=== PATIENT | female | born 1950 | race African-American/Black ===

== ENCOUNTER 2019-08-18 20:11 | Inpatient (IN) | payer OTHER, BC ==
[~2019-08-18] VITALS: Ht 170.2 cm; Wt 83.0 kg
[~2019-08-18 20:11] MED LIST: AMITIZA8 MCG PO; AMITRIPTYLINE H25 M2 PO; BUTALB-APAP-CA1 EACH PO; DEXILANT60 MG PO; LYRICA 50 MG50 MG PO; PREMARIN0.45 MG PO; ZOLOFT50 MG PO
[2019-08-18 20:12] VITALS: BP 98/70
[2019-08-18 21:31] LABS: ANION GAP 10 mmol/L (7-16); BUN 10 mg/dL (7-18); CHLORIDE 99 mmol/L (98-107); CO2 25 mmol/L (21-32); CREATININE 0.8 mg/dL (0.6-1.0); GLUCOSE 92 mg/dL (74-106); POTASSIUM 3.9 mmol/L (3.5-5.1); SODIUM 134 mmol/L (136-145)
[2019-08-18 21:36] LABS: ALBUMIN 3.1 g/dL (3.4-5.0); DIRECT BILIRUBIN < 0.1 mg/dL (<0.1-0.2); SGOT 71 U/L (15-37); SGPT 30 U/L (30-65); TOTAL BILIRUBIN 0.3 mg/dL (<0.1-1.0); TOTAL PROTEIN 7.7 g/dL (6.4-8.2)
[2019-08-18 21:40] LABS: ABSOLUTE NEUTROPHILS 2.5 thou/uL (1.4-8.2); BASOPHILS 0.2 % (0.0-2.0); HEMATOCRIT 28.2 % (37.0-47.0); HEMOGLOBIN 9.5 gm/dL (12.0-15.0); LYMPHOCYTES 18.2 % (24.0-44.0); MCH 30.4 pg (26.0-34.0); MCHC 33.8 g/dL (28.0-37.0); MCV 90.2 fL (80.0-100.0); MONOCYTES 5.6 % (1.0-8.0); PLATELET COUNT 124 thou/uL (150-400); RBC 3.12 mil/uL (4.20-5.00); RDW 12.7 % (10.5-14.5); WBC 3.3 thou/uL (4.0-11.0)
[2019-08-18 22:39] VITALS: BP 110/74
--- NOTE | 2019-08-18 22:44 | NUR ---
ED NURSE CALLED TO GIVE REPORT TO INPATIENT NURSE, WAS TOLD NURSE IS TRANSPORTING SOMEONE TO ICU AND WILL CALL WHEN SHE RETURNS
[2019-08-19 00:50] VITALS: BP 105/74
--- NOTE | 2019-08-19 01:36 | NUR ---
ADMIT FROM HOME. WAS AT HOME WITH SOA WEAKNESS AND DIARRHEA, HOTLINE REFERRED HER TO HER PCP. PCP ORDERED [facility] PT REPORTED STILL FEELING WEAK SOA COUGH, DIARRHEA SO SHE CAME TO THE ED. O2 PER NC 2L. PT REPORTED ED TOLD HER SHE HAS BILATERAL PNEUMONIA. PT LIVES AT HOME WITH HER WHO IS CURRENTLY WORKING AND SAYS HE HAS BEEN SLEEPING ON THE COUCH. LUNGS WITH WHEEZES, CRACKLES IN THE BASES, RR 32 WITH EXERTION, 20 AT REST. STEADY GAIT AND BALANCE WITH TRANSFER TO BSC. PT HAVING LIQUID BROWN STOOL. NEED UA SAMPLE TALKED WITH PT RE STRAIGHT CATH IF UNABLE TO OBTAIN WITH BSC. PT DECLINED FEMALE EXT CATH AT THIS TIME. TEMP DOWN TO 99 AFTER ED TYLENOL. IVF INTACT. NEW IV RAC. PT REQUESTED BLANKET AND SPRITE AND PROVIDED, BED ALARM ON. PT PLEASANT THANKING ALL STAFF FOR BEING HERE TO CARE FOR HER, STATED WHEN SHE WAS AT HOME NO ONE WANTED TO COME HELP. FLAT AFFECT, [facility] CONTACT.
[2019-08-19 04:20] VITALS: BP 101/67
--- NOTE | 2019-08-19 04:34 | NUR ---
PT DID NOT URINATE, STRAIGHT CATH FOR SAMPLE MICHELLE COLOR 400+. UA OBTAINED. PT NOW 02 SAT 94% RA. RR 20 WITH MOVEMENT AND TALKING.
[2019-08-19 04:47] LABS: HEMATOCRIT 36.6 % (37.0-47.0); MCH 30.2 pg (26.0-34.0); MCHC 33.4 g/dL (28.0-37.0); MCV 90.4 fL (80.0-100.0); RBC 4.05 mil/uL (4.20-5.00); RDW 12.8 % (10.5-14.5)
[2019-08-19 04:56] LABS: CALCIUM 7.9 mg/dL (8.5-10.1); CREATININE 0.8 mg/dL (0.6-1.0); POTASSIUM 3.7 mmol/L (3.5-5.1)
[2019-08-19 05:00] LABS: HEMOGLOBIN 12.2 gm/dL (12.0-15.0)
[2019-08-19 05:17] LABS: URINE BILIRUBIN NEGATIVE (Negative); URINE BLOOD NEGATIVE (Negative); URINE CLARITY CLEAR; URINE COLOR YELLOW; URINE GLUCOSE-RANDOM* NEGATIVE (Negative); URINE KETONES 2+ (Negative); URINE LEUKOCYTES-REFLEX NEGATIVE (Negative); URINE NITRITE-REFLEX NEGATIVE (Negative); URINE PROTEIN (DIPSTICK) 1+ (Negative); URINE SPECIFIC GRAVITY 1.025 (1.005-1.035); URINE UROBILINOGEN 0.2 E.U./dl (0.2-1.0)
[2019-08-19 06:15] LABS: BACTERIA-REFLEX 1-9 Few /HPF (None Seen); CASTS None Seen /LPF (None Seen); CRYSTALS None Seen /LPF (None Seen); MUCUS >6 Heavy strn/LPF (None Seen); SQUAMOUS 0-3 Few /LPF (0-3); URINE RBC 0-2 Rare /HPF (0-2); URINE WBC-REFLEX 0-5 Rare /HPF (0-5)
--- NOTE | 2019-08-19 06:33 | NUR ---
PTS CALLED FOR UPDATE AND PROVIDED PER PTS REQUEST.
[2019-08-19 07:46] VITALS: BP 113/74
[2019-08-19] MEDS ORDERED: SOMA250 MG PO (07:56)
[2019-08-19] MEDS ORDERED: SUMATRIPTAN SU100 MG PO (07:58)
--- NOTE | 2019-08-19 12:51 | NUR ---
1000- pt's sister called and wanted patient condition and information, sister is Sujatha Martell. Sister does not have pt access code. Sister was upset that RN was unable to give pt information per HIPPA. Sister then requested to talk to pt advocate. Pt advocate notified and personally spoke with pt's sister. At this time only Pt's has pt access code. 1250- Pt's Fabio Del Rosario called and stated he is not giving out the pt's access privacy code at this time and that if any family calls that does not have the access code, they can call him for updates.
[2019-08-19 14:58] VITALS: BP 142/86
--- NOTE | 2019-08-19 18:36 | NUR ---
PT HAD DIARRHEA X4 TODAY. GREEN LIQUID. PT HAS VERY POOR APPETITE. DR NOTIFIED OF PT HAVING DIARRHEA AND NEW ORDER FOR LOPERMIDE GIVEN. PT GIVEN MEDICATION X2 DOSES THIS SHIFT. PT C/O MIGRAINE TODAY AND HOME MIGRAINE MEDICATION RESTARTED. PT TOOK ONE DOSE BUT REFUSED 2ND DOSE STATING MIGRAINE IS GONE. PT C/O OF CHRONIC BACK PAIN WELL NON CARDIAC CHEST PAIN. PAIN MEDS GIVEN AND PT STATES PARTIAL RELIEF. PT IS ON 2L NC AND DOES NOT APPEAR TO BE IN ANY RESPIRATORY DISTRESS WITH O2 SAT >96% ENTIRE SHIFT.
[2019-08-19 19:22] VITALS: BP 127/81
--- NOTE | 2019-08-19 20:07 | NUR ---
PT RESTING IN BED LIGHTS OFF. O2 PER NC 2L. PT NOT LABORED WITH BREATHING, NO GROANING WHILE NURSE TALKING WTIH PT. SAD AFFECT, [facility] CONTACT. IVF INTACT. PT CALLS FOR ASSISTANCE WITH TRANSFER TO BS. ALARM ON. PT DECLINED HS SNACK, THANK NURSE FOR WATER. PT REQUESTING PRN FOR DIARRHEA AND PAIN WHEN THEY ARE BOTH DUE. PT REPORTS HX OF MIGRAINES. PT STATED SHE TALKED TO HER X1 TODAY. LUNGS WITH WHEEZES IN BASES. REMAINS IN ISOLATION.
[2019-08-20 03:41] VITALS: BP 104/71
--- NOTE | 2019-08-20 04:33 | NUR ---
PT AWAKENED THIS AM WITH REPETITIVE GROANING BEHAVIORS THAT SHE HAS EXHIBITED PREVIOUSLY. PT C/O HEADACHE AND NAUSEA AND PRNS PROVIED. PT IS SPEAKING SOFTLY VERSUS PREVIOUS EASILY HEARD VOICE.
--- NOTE | 2019-08-20 04:57 | NUR ---
PT DECLINED FLU SHOT STATED SHE DOES NOT WANT IT UNTIL SHE IS FEELING BETTER.
[2019-08-20 05:29] LABS: BASOPHILS 0.3 % (0.0-2.0); HEMATOCRIT 37.2 % (37.0-47.0); HEMOGLOBIN 12.4 gm/dL (12.0-15.0); LYMPHOCYTES 19.2 % (24.0-44.0); MCH 30.2 pg (26.0-34.0); MCHC 33.2 g/dL (28.0-37.0); MCV 90.9 fL (80.0-100.0); MONOCYTES 5.6 % (1.0-8.0); PLATELET COUNT 220 thou/uL (150-400); POLYS 74.9 % (36.0-66.0); RBC 4.09 mil/uL (4.20-5.00); RDW 12.8 % (10.5-14.5); WBC 5.4 thou/uL (4.0-11.0)
[2019-08-20 08:00] VITALS: BP 113/73
--- NOTE | 2019-08-20 14:11 | NUR ---
ASSESSMENT: CM REVIEWED CHART AND SPOKE WITH PATIENT VIA PHONE. PT WAS ADMITTED WITH SEPSIS/PNA/DIARRHEA AND PT IS CURRENTLY BEING TESTED FOR COVID 19 AND RESULTS ARE PENDING. PT REPORTS SHE LIVES IN AN APT WITH HER . PT IS NORMALLY VERY INDEPENDENT AND DOES NOT HAVE ANY DME. PT REPORTS SHE IS INDEPENDENT WITH ADLS. PT HAS NOT HAD HH IN THE PAST NOR BEEN TO A SNF. PT STATES SHE DOES NOT HAVE OXYGEN AT HOME. PT IS CURRENTLY ON 1L OXYGEN AND WILL CONTINUE TO MONITOR. PT REPORTS FEELING WEAK. PT/OT UNABLE TO SEE PATIENT UNTIL COVID TESTING COMES BACK NEGATIVE (AWAITING RESULTS AT THIS TIME). CM DISCUSSED POSSIBLE NEED FOR HH AND PT WANTED REFERRAL SENT TO [facility]. CM FAXED REFERRAL. IF COVID TESTING COMES BACK NEGATIVE AND PT IS ABLE TO GO HOME WITH HH CONTACT [facility] AT:[phone]. IF PATIENT IS ABLE TO DISCHARGE WITH HH FAX DISCHARGE ORDERS TO [phone].
--- NOTE | 2019-08-20 18:13 | NUR ---
PATIENT CONT TO REST IN ROOM AT THIS TIME. RESPIRATIONS ARE EVEN NON LABORED. SHE DOES APPEAR TO BE ANXIOUS. EASILY REDIRECTED. SHE DID COMPLAIN OF MIGRAINE EARLIER AND PRN MED ADMININSTERED AND IT WAS EFFECTIVE. SHE IS HAS NOT EATING ANY FOOD ALL DAY. DRINKS VERY MINIMAL AMOUNTS. WILL CONT TO ENCOURAGE.
[2019-08-20 19:30] VITALS: BP 115/78
[2019-08-20 23:01] VITALS: BP 128/75
[2019-08-21] VITALS (24 sets, daily range): BP systolic 101–146; BP diastolic 59–79
--- NOTE | 2019-08-21 03:17 | NUR ---
Patient making slow progress towards outcome goals. Vital and rhythm stable. IVFLuids infusing. Weak, slow, requires assistance up to bathroom. Appetite poor, drinking fluids. Requires 3L oxygen for sats above 91%. Difficulty controlling Migraine headache, Morphine afforded best migraine relief per patient.
--- NOTE | 2019-08-21 12:31 | NUR ---
ASSUMED PATIENT CARE AT 0700. A/O X3. DEPRESSED. POOR APPETITE. HAS TEMP 38.4 IN AM. INCREASED 02 TO 4L/NC. 2-3+ EDEMA. COVID 19 TEST POSITIVE. FAMILY NOTIFIED. WILL TRANSFER PATIENT TO [facility] SOON.
--- NOTE | 2019-08-21 13:32 | NUR ---
PT ORIENTED TO ROOM AND UNIT, BED LOW AND LOCKED, SIDE RAILS UP X3, CALL LIGHT IN REACH. TELE AP[PLIED AND PT IN ISOLATION FOR COVID-19. WILL CONTINUE TO ASSESS.
--- NOTE | 2019-08-21 18:01 | NUR ---
PT RESTED IN BED THIS THE REMAINDER FO SHIFT AND IS NOW DOWN TO 3L NC. PT PROGRESSING TOWARDS GOALS.
[2019-08-22] VITALS (44 sets, daily range): BP systolic 120–160; BP diastolic 66–110
--- NOTE | 2019-08-22 05:56 | NUR ---
ASSUME CARE 1900. PT STABLE. BP RUNS MIGH IN 150s SYSTOLIC AND PATIENT IS SOMETIMES TACHYPNEIC. COMPLAINS OF INTERMITTENT HEADCHS AND INDICATES A HX OF MIGRAINES. TAKES IMITREX AT HOME FOR MIGRAINES. ONETIME DOSE GIVEN DURING SHIFT AND HEADCHE SEEMS TO SUBSIDE A LITTE TO A 5/10. ON ROOM AIR SATS MID 90s. SR NOTED ON MONITOR WITH HR IN 70s TO 90s. COUGHING UP THICK, CLEAR STRINGY, SPUTUM. ASSESSMENT ASA CHARTED. PROGRESSING WELL WITH POC. PATIENT IS EXTREMELY WEEK AND WOULD BENEFIT FROM PT/OT. PLAN IS TO CONTINUE TO MANAGE RESPIRATORY FUNCTION. WILL CONTINUE TO MONITOR AND FOLLWOW WITH POC.
[2019-08-22 06:41] LABS: HEMATOCRIT 36.7 % (37.0-47.0); HEMOGLOBIN 12.3 gm/dL (12.0-15.0); MCH 30.4 pg (26.0-34.0); MCHC 33.6 g/dL (28.0-37.0); MCV 90.5 fL (80.0-100.0); RBC 4.05 mil/uL (4.20-5.00); RDW 13.1 % (10.5-14.5); WBC 8.9 thou/uL (4.0-11.0)
[2019-08-22 08:10] LABS: ANISOCYTOSIS SLIGHT; PLATELET COUNT 244 thou/uL (150-400)
--- NOTE | 2019-08-22 19:48 | NUR ---
ASSUMED CARE OF PT AT 0700, PT CONT TO NEED INCREASED OXYGEN NOTED TO BEDESATTING AT TIMES. DR ESCOBAR NOTIFIED. PT NEEDING 10L OXYGEN AT THISTIME. PT FEBRILE ASWELL AND TYLENOL ADMINISTERED. PT RESTING WITH EYESCLOSEDAT THISTIME.
--- NOTE | 2019-08-22 23:02 | NUR ---
@AT 1935HRS FAMILY CALLED BARRY, HIS BROTHER AND THEIR DAD ON A [address] LINE TO CHECK ON THE PT. PT PASSWORD CODE VERIFIED. FAMILY UPDATED ON THE PT AND INFORMED ON THE INCREASED WORK OF BREATHING ON THE PT. FAMILY WANTED TO KNOW THE PT TEMP AND BP. WHILE SPEAKING WITH THE FAMILY RT STAFF CAME AND SAID HE TALKED THE PULM PHYSICIAN, AND HE WAS COMING TO HAVE PT INTUBATED. FAMILY INFORMED AT THAT TIME ABOUT PENDING INTUBATION PROCEDURE. FAMILY CALLED BACK TO CHECK ON THE PT AGAIN ABOUT 2030HRS INFORMED STILL WAITING ON THE DR FOR INTUBATION , PT AT THE TIME SITTING IN BED WITH INCREASED WORK OF BREATHING. FAMILY STATED THEY WILL CALL BACK LATER AFTER THE PROCEDURE.
[2019-08-22 23:04] LABS: BE(vivo) -8.2 mmol/L (-2 to +3); HCO3 15.8 mmol/L (22.0-26.0); PCO2 28.2 mmHg (35.0-45.0); pH 7.366 (7.360-7.450); sO2 99.5 % (92.0-98.0)
--- NOTE | 2019-08-22 23:08 | NUR ---
@2300HRS FAMILY CALLED BARRY, HIS BROTHER AND THEIR DAD ON THREE WAY LINE. PT PASSWORD CODE VERIFIED. PT INFORMED THE INTIUBATION PROCEDURE WAS COMPLETED AND PT RESTING COMFORTABLY AT THIS TIME. ALSO INFORMED PT NOW HAS A MEDINA CATHETER AND NG TUBE WAS INSERTED AT AND XRAY IN THE ROOM FOR NG TUBE VERIFICATION. FAMILY EXPRESSED APPRECIATION FOR THE CARE STATED WILL CALL IN THE AM TO CHECK ON THE PT.
[2019-08-23] VITALS (75 sets, daily range): BP systolic 80–142; BP diastolic 55–94
--- NOTE | 2019-08-23 | NUR ---
ASSUMED CARE OF PT. INTUBATED AT 0. SEDATED.
[2019-08-23 05:30] LABS: HCO3 17.7 mmol/L (22.0-26.0); PCO2 26.2 mmHg (35.0-45.0); PO2 103.3 mmHg (80.0-100.0); pH 7.447 (7.360-7.450)
[2019-08-23 05:38] LABS: HEMATOCRIT 31.3 % (37.0-47.0); HEMOGLOBIN 10.7 gm/dL (12.0-15.0); MCH 30.4 pg (26.0-34.0); MCHC 34.2 g/dL (28.0-37.0); MCV 88.7 fL (80.0-100.0); RBC 3.53 mil/uL (4.20-5.00); WBC 12.7 thou/uL (4.0-11.0)
[2019-08-23 05:50] LABS: CALCIUM 7.9 mg/dL (8.5-10.1); CREATININE 0.6 mg/dL (0.6-1.0)
[2019-08-23 05:53] LABS: POTASSIUM 2.9 mmol/L (3.5-5.1)
--- NOTE | 2019-08-23 06:00 | NUR ---
REMAINS INTUBATED AND SEDATED WITH PROPOFOL AND VERSED GTTS. ISOLATION FOR COBID 19 VIRUS. HAD A LARGE SOFT FELICIANO BROWN STOOL EARLIER. SINUS RHYTHM 600 CC UO THIS SHIFT. WILL CONT TO MONITOR.
--- NOTE | 2019-08-23 12:46 | NUR ---
VAT CONSULED FOR A CL FOR THIS COVID PT. DR ESCOBAR WANTED LINE URGENTLY AND IT IS MED NECESSITY. A [id number] PLACED LT EJ AND TIP AT THE CAJ PER CXR. PLEASE SEE INSERTION NOTE FOR DETAILS
--- NOTE | 2019-08-23 12:52 | NUR ---
discussed during los, pt remains on vent, + covid 19. she lives with her spouse in an apartment. will cont following as needed for dc needs.
--- NOTE | 2019-08-23 15:43 | NUR ---
Nutrition: Noted plans for tube feeds. REC Vital HP to reach goal 60 mL/hr.
--- NOTE | 2019-08-23 16:59 | NUR ---
PT INTUBATED AND SEDATED, ASSESSMENTS DOCUMENTED. PT ON LEVOPHED/PROPOFOL/VERSED GTT FOR VENT AND SEDATION MANAGEMENT. LEFT TRIPLE LUMEN IJ PLACED AT BEDSIDE BY VASC ACCESS TEAM. POTASSIUM CRITICAL AT 2.7 @1650, WILL FOLLOW ELECTROLYTE PROTOCAL. ADEQUATE URINE OUTPUT THROUGH SHIFT. NO BM FOR DAY SHIFT. PT NOT PROGRESSING TOWARDS PLAN OF CARE. PATIENT AND FAMILY HAVE BEEN UPDATED AND EDUCATED. WILL CONTINUE TO MONITOR.
[2019-08-24] VITALS (85 sets, daily range): BP systolic 81–139; BP diastolic 55–88
[2019-08-24 05:25] LABS: HEMATOCRIT 31.8 % (37.0-47.0); HEMOGLOBIN 10.6 gm/dL (12.0-15.0); MCH 29.9 pg (26.0-34.0); MCHC 33.3 g/dL (28.0-37.0); MCV 89.8 fL (80.0-100.0); PLATELET COUNT 280 thou/uL (150-400); RBC 3.54 mil/uL (4.20-5.00); WBC 14.5 thou/uL (4.0-11.0)
[2019-08-24 05:29] LABS: BE(vivo) -0.8 mmol/L (-2 to +3); HCO3 21.1 mmol/L (22.0-26.0); PCO2 27.2 mmHg (35.0-45.0); PO2 74.5 mmHg (80.0-100.0); pH 7.507 (7.360-7.450); sO2 96.3 % (92.0-98.0)
[2019-08-24 05:35] LABS: ALBUMIN 1.6 g/dL (3.4-5.0); CALCIUM 7.9 mg/dL (8.5-10.1); CREATININE 0.7 mg/dL (0.6-1.0); TOTAL BILIRUBIN 0.8 mg/dL (<0.1-1.0); TOTAL PROTEIN 5.7 g/dL (6.4-8.2)
[2019-08-24 05:37] LABS: POTASSIUM 2.8 mmol/L (3.5-5.1)
[2019-08-24 06:05] LABS: ABSOLUTE NEUTROPHILS 13.8 thou/uL (1.4-8.2); ANISOCYTOSIS 1+; NUCLEATED RBCS 2 /100WBC; PLATELET ESTIMATE NORMAL; POIKILOCYTOSIS 1+
--- NOTE | 2019-08-24 15:41 | NUR ---
ASSUMED CARE AT 0700, ASSESSMENT AND VITAL SIGNS COMPLETED PER ICU PROTOCOL. DR. MUSA ROUNDED THIS AM, NO NEW ORDERS RECEIVED. DR. AUSTIN ROUNEDED THIS AM, NEW ORDERS RECEIVED AND EXECUTED.
[2019-08-25] VITALS (89 sets, daily range): BP systolic 81–129; BP diastolic 58–88
--- NOTE | 2019-08-25 04:52 | NUR ---
NO CHANGES OVERNIGHT. PT REMAINS ON VENT WITH NO CHANGE IN SETTINGS. ON VERSED AND PROPOFOL GTTS FOR SEDATION/VENT MANAGMENT. ON LEVO GTT AT LOW RATE FOR BP SUPPORT. PT WAS GRADUALLY BECOMING MORE TACHYPNEIC EARLIER, BUT SEDATION WAS INCREASED, PT'S BREATHING SLOWED DOWN AND PT APPEARED MORE CALM. PT WAS GRIMACING WHEN TACHYPNEIC. PT IS STABLE, BUT IS NOT PROGRESSING AT THIS TIME. WILL CONTINUE TO MONITOR.
[2019-08-25 05:33] LABS: BE(vivo) 0.9 mmol/L (-2 to +3); HCO3 23.2 mmol/L (22.0-26.0); PCO2 29.3 mmHg (35.0-45.0); PO2 102.2 mmHg (80.0-100.0); pH 7.516 (7.360-7.450); sO2 98.2 % (92.0-98.0)
[2019-08-25 06:59] LABS: HEMATOCRIT 29.4 % (37.0-47.0); HEMOGLOBIN 9.9 gm/dL (12.0-15.0); MCH 29.9 pg (26.0-34.0); MCHC 33.5 g/dL (28.0-37.0); MCV 89.2 fL (80.0-100.0); PLATELET COUNT 345 thou/uL (150-400); RDW 12.9 % (10.5-14.5); WBC 13.6 thou/uL (4.0-11.0)
[2019-08-25 07:23] LABS: ALBUMIN 1.5 g/dL (3.4-5.0); CALCIUM 8.5 mg/dL (8.5-10.1); CREATININE 0.6 mg/dL (0.6-1.0); POTASSIUM 3.8 mmol/L (3.5-5.1); TOTAL BILIRUBIN 0.4 mg/dL (<0.1-1.0); TOTAL PROTEIN 5.8 g/dL (6.4-8.2)
[2019-08-25 09:01] LABS: ABSOLUTE NEUTROPHILS 11.4 thou/uL (1.4-8.2); PLATELET ESTIMATE NORMAL
--- NOTE | 2019-08-25 18:42 | NUR ---
ASSESSMENTS AND INTERVENTIONS DOCCUMENTED. NO MAJOR CHANGES THROUGH OUT SHIFT. FAMILY UPDATED ABOUT POC. FAMILY EXPRESSING UNDERSTANDING. PATIENT REMAINS STABLE ON THE VENT. PROPFOL AND VERSED GTT. LEVOPHED GTT TITRATED OFF. PATIENT BP WNL. PATIENT PROGRESSING TOWARDS GOALS EVIDENCE BY BEING TITRATED OFF THE LEVOPHED GTT.
[2019-08-26] VITALS (31 sets, daily range): BP systolic 92–114; BP diastolic 64–81
[2019-08-26 05:30] LABS: CALCIUM 8.6 mg/dL (8.5-10.1); CREATININE 0.6 mg/dL (0.6-1.0); HEMATOCRIT 27.6 % (37.0-47.0); HEMOGLOBIN 9.2 gm/dL (12.0-15.0); MCHC 33.4 g/dL (28.0-37.0); MCV 89.8 fL (80.0-100.0); POTASSIUM 3.5 mmol/L (3.5-5.1); RBC 3.08 mil/uL (4.20-5.00); WBC 11.8 thou/uL (4.0-11.0)
--- NOTE | 2019-08-26 06:16 | NUR ---
No event tonight. Pt remains stable in this shift. Remain off Levophed gtt. MAP has been reading >65 mmHg. Start TF last night, so far she is suzan very well. No other changes from last assessment.
[2019-08-26 08:49] LABS: BE(vivo) 3.9 mmol/L (-2 to +3); HCO3 27.3 mmol/L (22.0-26.0); PCO2 36.5 mmHg (35.0-45.0); PO2 84.2 mmHg (80.0-100.0); pH 7.492 (7.360-7.450); sO2 97.1 % (92.0-98.0)
--- NOTE | 2019-08-26 16:22 | NUR ---
PATIENT ASSESSMENT AND VITAL SIGNS DOCUMENTED. LASIX GIVEN WITH RESULTANT OF URINE OUTPUT >30ML/HR. PATIENT HAD A BOWEL MOVEMET TODAY. INTEGRITY OF VENTILATOR TUBING INTACT. PATIENT OXYGENTATION REMAINS >92%. PATIENT SEPSIS SCREENING WAS POSITIVE, THIS WAS RELAYED TO PHYSICIAN, AWAITING RESPONSE. NURSE UPDATED PHYSICIANS THEY ROUNDED. LUNG SOUNDS ARE CLEAR. RT PROVIDING SUCTION WHEN NEEDED. NO EXTRA SUCTION REQUIRED TODAY. LOW GRADE TEMPERATURE NOTED. PATIENT MAINTAINED TOWARDS PLAN OF CARE OF OXYGENATION, STABILITY OF VITAL SINGS, SAFETY OF VENTILATOR AND THE ENDOTRACHEAL TUBE. PLAN IS TO CONTINUE TO MONITOR PATIENT STATUS, CHEST XRAY IN THE MORNING. FAMILY UPDATED THIS MORNING ON PATIENT STATUS AND CRITICAL NATURE OF CONDITION. THEIR QUESTIONS WERE ANSWERED. THEY APPEARED GRATEFUL FOR THE CARE THE STAFF IS PROVIDING.
--- NOTE | 2019-08-26 16:27 | NUR ---
PHYSICIAN RESPONDED IN REGARDS TO SEPSIS SCREENING POSITIVE. NO NEW ORDERS AT THIS TIME.
[2019-08-26 18:07] LABS: ADENOVIRUS Negative (Negative); INFLUENZA A Negative (Negative); INFLUENZA B Negative (Negative); METAPNEUMOVIRUS Negative (Negative); PARAINFLUENZA 1 Negative (Negative); PARAINFLUENZA 2 Negative (Negative); PARAINFLUENZA 3 Negative (Negative); RHINOVIRUS Negative (Negative); RSV A Negative (Negative); RSV B Negative (Negative)
[2019-08-27] VITALS (24 sets, daily range): BP systolic 99–127; BP diastolic 64–87
--- NOTE | 2019-08-27 05:45 | NUR ---
Pt remains sedated, intubated and restrained, she is reactive to cares, +gag/cough noted. At approx 0400, her temp and heart rate normalized, she is currently SR 89, temp 36.9. Lung sounds are diminished, minimal ETT/oral secretions, sats 95% and above. Her tube feeding is at 50 ml's/hr via OGT, flushes freely, minimal residuals, with active bowel sounds. Rayo catheter is patent draining clear yellow urine, she receives IV lasix, with good effect. The bed is in the low/locked position, the siderails are up x 4, and she was monitored closely through the night. She is slowly progressing towards her POC goals.
[2019-08-27 09:12] LABS: BE(vivo) 5.2 mmol/L (-2 to +3); HCO3 29.1 mmol/L (22.0-26.0); PCO2 39.9 mmHg (35.0-45.0); PO2 81.6 mmHg (80.0-100.0); pH 7.481 (7.360-7.450); sO2 96.7 % (92.0-98.0)
--- NOTE | 2019-08-27 09:34 | NUR ---
pt remains intubated, has tub feeding, for nutrition. possible will start weaning trails. no anticipated dc over the weekend. will cont following as needed for dc needs. remains in isolation precaution for covid 19 positive.
--- NOTE | 2019-08-27 18:47 | NUR ---
FI02 DOWN TO 30% THIS SHIFT. OPENS EYES AND TRACKS BUT DOES NOT FOLLOW COMMANDS. SEVERAL LIQUID STOOLS, FECAL MANANGEMENT SYSTEM PLACED. MAX TEMP 101.4. TYLENOL GIVEN AND TEMP DOWN TO 99.3. TOLERATING TUBE FEEDS. ALL HARD SURFACES CLEANED AND DISENFECTED.
[2019-08-28 05:02] LABS: BE(vivo) 4.4 mmol/L (-2 to +3); HCO3 28.6 mmol/L (22.0-26.0); PCO2 40.8 mmHg (35.0-45.0); PO2 89.6 mmHg (80.0-100.0); pH 7.463 (7.360-7.450); sO2 97.2 % (92.0-98.0)
--- NOTE | 2019-08-28 06:00 | NUR ---
NO CHANGES OVERNIGHT. PT INTUBATED AND ON VENT; PROPOFOL AND VERSED GTTS FOR VENT MANAGMENT. PT TOLERATING TUBE FEEDINGS WITH RESIDUALS AT 10 CC OR LESS. TUBE FEEDING AT GOAL RATE. PT IS PROGRESSING TOWARDS GOALS. WILL CONTINUE TO MONITOR.
[2019-08-28 07:01] LABS: HEMATOCRIT 25.8 % (37.0-47.0); HEMOGLOBIN 8.6 gm/dL (12.0-15.0); MCH 29.8 pg (26.0-34.0); MCHC 33.1 g/dL (28.0-37.0); RBC 2.87 mil/uL (4.20-5.00); RDW 12.4 % (10.5-14.5)
[2019-08-28 07:08] LABS: PLATELET COUNT 484 thou/uL (150-400)
[2019-08-28 07:11] LABS: ALBUMIN 2.9 g/dL (3.4-5.0); CALCIUM 9.5 mg/dL (8.5-10.1); CREATININE 0.6 mg/dL (0.6-1.0); POTASSIUM 3.2 mmol/L (3.5-5.1); TOTAL BILIRUBIN 0.5 mg/dL (<0.1-1.0)
[2019-08-28 10:18] LABS: ABSOLUTE NEUTROPHILS 10.4 thou/uL (1.4-8.2)
[2019-08-28 10:19] LABS: ANISOCYTOSIS 1+; LARGE PLATELETS OCCASIONAL; TOXIC GRANULATION 1+
--- NOTE | 2019-08-28 17:03 | NUR ---
ASSESSMENTS AND INTERVENTIONS DOCCUMENTED. NO MAJOR CHANGES THROUGH OUT SHIFT. PATIENT REMAINS INTUBATED WITH LIGHT SEDATION. PATIENT OPENING EYES SPONTANEOUSLY, BUT STILL VERY WEAK. PATIENT PROGRESSING TOWARDS GOALS AT THIS TIME EVIDENCE BY A IMPROVEMENT IN VENT SETTINGS.
[2019-08-28 19:00] VITALS: BP 112/76
[2019-08-28 20:00] VITALS: BP 114/76
[2019-08-28 21:00] VITALS: BP 125/80
[2019-08-28 22:00] VITALS: BP 122/76
[2019-08-28 23:00] VITALS: BP 115/71
[2019-08-29] VITALS (19 sets, daily range): BP systolic 113–140; BP diastolic 71–88
[2019-08-29 04:24] LABS: BE(vivo) 5.4 mmol/L (-2 to +3); PCO2 44.4 mmHg (35.0-45.0); PO2 75.5 mmHg (80.0-100.0); pH 7.448 (7.360-7.450); sO2 95.6 % (92.0-98.0)
[2019-08-29 05:40] LABS: HEMATOCRIT 26.1 % (37.0-47.0); HEMOGLOBIN 8.6 gm/dL (12.0-15.0); MCH 29.9 pg (26.0-34.0); MCV 90.5 fL (80.0-100.0); PLATELET COUNT 534 thou/uL (150-400); RBC 2.88 mil/uL (4.20-5.00); RDW 12.7 % (10.5-14.5); WBC 12.4 thou/uL (4.0-11.0)
[2019-08-29 05:51] LABS: ALBUMIN 3.4 g/dL (3.4-5.0); CALCIUM 9.6 mg/dL (8.5-10.1); CREATININE 0.6 mg/dL (0.6-1.0); POTASSIUM 3.5 mmol/L (3.5-5.1); TOTAL BILIRUBIN 0.5 mg/dL (<0.1-1.0); TOTAL PROTEIN 7.4 g/dL (6.4-8.2)
[2019-08-29 06:18] LABS: ABSOLUTE NEUTROPHILS 10.3 thou/uL (1.4-8.2); MYELOCYTES 3 %
[2019-08-29 06:20] LABS: LARGE PLATELETS OCCASIONAL
--- NOTE | 2019-08-29 06:28 | NUR ---
CHART CHECK. PT SLOWLY PROGRESSING TOWARDS GOALS. CPAP TRIAL TODAY. CONTINUE TO MONITOR.
--- NOTE | 2019-08-29 11:27 | NUR ---
ON THE VENT AND SEDATED, TACHYCARDIC AND TACHYPNIC AND DOCTORS AWARE. OTHER VITALS STABLE, ON FENTANYL GTT FOR PAIN MANAGEMENT. TOLERATING TUBEFEEDING WITH MINIMAL RESIDUALS. WILL CONTINUE WITH POC. ASSESSMENT DOCUMENTED.
[2019-08-30] VITALS (25 sets, daily range): BP systolic 103–142; BP diastolic 66–91
[2019-08-30 04:49] LABS: BE(vivo) 2.1 mmol/L (-2 to +3); HCO3 26.8 mmol/L (22.0-26.0); PCO2 41.9 mmHg (35.0-45.0); PO2 92.8 mmHg (80.0-100.0); pH 7.423 (7.360-7.450); sO2 97.2 % (92.0-98.0)
[2019-08-30 06:47] LABS: HEMATOCRIT 26.6 % (37.0-47.0); HEMOGLOBIN 8.8 gm/dL (12.0-15.0); MCH 29.9 pg (26.0-34.0); MCV 90.5 fL (80.0-100.0); PLATELET COUNT 604 thou/uL (150-400); RBC 2.95 mil/uL (4.20-5.00); RDW 13.1 % (10.5-14.5); WBC 13.6 thou/uL (4.0-11.0)
[2019-08-30 07:06] LABS: ALBUMIN 3.8 g/dL (3.4-5.0); CREATININE 0.7 mg/dL (0.6-1.0); POTASSIUM 4.3 mmol/L (3.5-5.1); TOTAL BILIRUBIN 0.4 mg/dL (<0.1-1.0); TOTAL PROTEIN 7.9 g/dL (6.4-8.2)
--- NOTE | 2019-08-30 07:58 | NUR ---
[facility]. PT CONT ON SEDATION, WHEN LIGHTENED PT EYES OPEN, NO TRACKING. NO SPONTANEOUS MOVEMENT NOTED. CONT TO BE TACHYPNIC WHEN LIGHTENED, LS -COARSE RHONCI NOTED. RESP TX STARTED. 02SAT WNL. UO ADEQUATE. CONT PLAN OF CARE. CONT PPE FOR COVID ISOLATION
[2019-08-30 08:33] LABS: ABSOLUTE NEUTROPHILS 9.8 thou/uL (1.4-8.2)
[2019-08-30 08:34] LABS: PLATELET ESTIMATE INCREASED
--- NOTE | 2019-08-30 09:30 | NUR ---
ASSUMED CARE THIS AM. PATIENT GIVEN MORPHINE FOR GENERALIZED DISCOMFORT, MONITOR ST, VSS AFEBILE AND ASSISTING VENT. TOLERATING TUBE FEEDING. URINE OUTPUT ONLY 25 ML/HR. LASIX GIVEN. WILL CONTINUE TO MONITOR.
--- NOTE | 2019-08-30 10:18 | NUR ---
she remains on vent, and has tube feeding. noted in chart, cpap trials over the past weekend. will cont following as needed for dc needs.
--- NOTE | 2019-08-30 14:00 | NUR ---
PATIENT IS RESTING QUIETLY AFTER MORPHINE. VSS. TUBE FEEDING AT GOAL WITH SMALL RESIDUALS LESS THAN 30 ML. URINE OUTPUT GREATER THAN 30 ML/HR.
--- NOTE | 2019-08-30 19:30 | NUR ---
FENTANYL GIVEN FOR ELEVATED HR AND RESP RATE, TEMP 99.3 AX. COVID 19 CULTURE REPEATED. PATIENT SPONTANOULY OPENS EYES, REASSURANCE GIVEN. PROPOFOL AND VERSED DRIPS REMAIN AT 50 MCG/K/MIN AND 5 MG/HR RESPECIVELY. MEDINA PATENT WITH URINE OUTPUT OF 50ML/HR AND TOLERATING TUBE FEEDING.
--- NOTE | 2019-08-30 22:33 | NUR ---
ASSUMED PT CARE AT 1900. VSS EXCEPT HR WHICH IS IN THE 110S. SEDATION VACATION AT 2136; FACIAL GRIMACING TO PAIN BUT DOESNT FOLLOW COMMANDS. PT IS STABLE FOR NOW. FAMILY CALLED ON PT'S CELLPHONE AT APPROX 2200. WAS PUT ON SPEAKER SO FAMILY COULD COMMUNICATE WITH PT. PT APPEARS STABLE RIGHT NOW WILL CONTINUE TO CLOSELY MONITOR.
[2019-08-31] VITALS (24 sets, daily range): BP systolic 102–131; BP diastolic 65–88
[2019-08-31 06:14] LABS: CALCIUM 9.7 mg/dL (8.5-10.1); CREATININE 0.7 mg/dL (0.6-1.0); POTASSIUM 4.8 mmol/L (3.5-5.1)
--- NOTE | 2019-08-31 19:32 | NUR ---
ASSUMED CARE OF PT AT 0700. PT INTUBATED AND SEDATED ON PROPOFOL AND VERSED. VSS. TUBE FEEDING INFUSING AT GOAL RATE OF 60. MEDINA AND RECTAL TUBE TO DD. WHEN PLACED ON SEDATION VACATION PT WOULD OPEN HER EYES, BUT DOES NOT FOLLOW COMMANDS. PT DOES NOT APPEAR TO BE IN ANY PAIN. WILL CONTINUE TO MONITOR
[2019-09-01] VITALS (24 sets, daily range): BP systolic 106–137; BP diastolic 66–91
--- NOTE | 2019-09-01 04:49 | NUR ---
ASSESSMENT DOCUMENTED.PT REMAINS SEDATED,ON VERSED AND PROPOFOL DRIPS ,OPEN EYES SPONTANEOUSLY.SEEMS TO BE IN NO ACUTE DISTRESS.REMAINS ON VENT.NO SETTING CHANGES THIS SHIFT.TUBE FEEDINGS TOLERATED.MEDINA DD 1350CC OUT AT THIS TIME.FECAL MANAGEMNET IN PLACE WITH LOOSE STOOLS.REMAINS TACHYPNEIC WITH RESP IN HIGH 20S TO LOWER 30S.SR/STACHY ON MONITOR. CALLED AND UPDATED WITH CARE.NO CONCERNS VOICED.WILL CONT WITH POC.
[2019-09-01 06:13] LABS: CALCIUM 9.9 mg/dL (8.5-10.1); CREATININE 0.6 mg/dL (0.6-1.0); POTASSIUM 4.4 mmol/L (3.5-5.1)
--- NOTE | 2019-09-01 16:39 | NUR ---
ASSESSMENTS AND INTERVENTIONS DOCCUMENTED. NO MAJOR CHANGES THROUGH OUT SHIFT. PATIENT REMAINS STABLE. DR ESCOBAR CALLED TO GIVE THE FAMILIES CONTACT INFORMATION. PATIENT PROGRESSING TOWARDS GOALS AT THIS TIME. PATIENT IS ON 30% FIO2 AND STABLE.
[2019-09-02] VITALS (24 sets, daily range): BP systolic 97–128; BP diastolic 66–88
--- NOTE | 2019-09-02 03:08 | NUR ---
ASSESSMENSTS AND MEDS GIVEN ARE DOCUMENTED. SEDATION VACATION; PT FACIAL GRIMACES TO PAIN BUT DOES NOT FOLLOW COMMAND. SHE DESATS TO THE 70s WHEN TURNED. PT U/O WAS >40ML/HR. PT IS STABLE PT HAD AN UNEVENTFUL NOC, PT IS PROGESSING SLOWLY TOWARDS POC GOALS.
[2019-09-02 05:25] LABS: ALBUMIN 4.4 g/dL (3.4-5.0); CALCIUM 10.5 mg/dL (8.5-10.1); CREATININE 0.6 mg/dL (0.6-1.0); MAGNESIUM 2.6 mg/dL (1.8-2.4); POTASSIUM 4.3 mmol/L (3.5-5.1); TOTAL BILIRUBIN 0.3 mg/dL (<0.1-1.0); TOTAL PROTEIN 8.9 g/dL (6.4-8.2)
[2019-09-02 05:38] LABS: HEMOGLOBIN 9.6 gm/dL (12.0-15.0); MCH 29.9 pg (26.0-34.0); MCV 90.4 fL (80.0-100.0); RBC 3.2 mil/uL (4.20-5.00); RDW 12.7 % (10.5-14.5); WBC 12.2 thou/uL (4.0-11.0)
--- NOTE | 2019-09-02 11:24 | NUR ---
discussed during los, cont to need vent support, has T.F. support for nutrition. possible will need a trach when covid 19 is negative. will cont following as needed dc needs.
--- NOTE | 2019-09-02 16:58 | NUR ---
ASSUMED CARE AT 0700, ASSESSMENT AND VITAL SIGNS COMPLETED PER ICU PROTOCOL. DR. MUSA ROUNDED THIS AM, NO NEW ORDERS RECEIVED. DR. ESCOBAR ROUNDED IN AFTERNOON, NEW ORDERS RECEIVED AND EXECUTED.
--- NOTE | 2019-09-02 20:00 | NUR ---
1999- sedation vacation perform. propofol ongoing at 40 mcgs stopped for approximately 15 mins. Pt able to open eyes, redraws from stimuli, gag and corneal reflex present. tachypneic while on the vent, respirations in the upper 30s. unable to follow simple commands of squeezing hands or nodding yes/no when asked question. vss. afebrile. versed gtt and propofol ongoing. will continue to monitor
[2019-09-03] VITALS (24 sets, daily range): BP systolic 97–136; BP diastolic 62–92
[2019-09-03 05:31] LABS: CALCIUM 10.4 mg/dL (8.5-10.1); CREATININE 0.8 mg/dL (0.6-1.0); POTASSIUM 4.2 mmol/L (3.5-5.1)
--- NOTE | 2019-09-03 07:24 | NUR ---
SEDATED ON VENT. VSS STABLE. AFEBRILE. ON VERSED AND PROPOFOL FOR SEDATION. TOLERATING TUBE FEEDING WITH MINIMAL RESIDUALS. TALKED TO DURING THE NIGHT AT APPROXIMATELY 2200, UPDATED ABOUT PT'S CARE. WILL CONTINUE TO MONITOR.
--- NOTE | 2019-09-03 08:40 | NUR ---
chart review, noted cont with weaning trials, possible will need trach when negative for covid 19.
--- NOTE | 2019-09-03 09:00 | NUR ---
ASSUMMED CARE ON PATIENT AT 0700 FROM NIGHT NURSE. PLACED ON SEDATION VACATION AT 0830 TO 0850 THIS AM. OPENED EYES, WOULD NOT FOLLOW ANY COMMANDS. HEART RATE UP TO THE 110'S, ST FROM THE 100'S. BP STABLE. RESP RATE INCREASED FROM THE 20'S TO LOWER 30'S. WILL CONTINUE TO MONITOR
--- NOTE | 2019-09-03 12:15 | EKG ---
[facility] [employer] [address] ELECTROCARDIOGRAM REPORT Name: KARI MIRELES Room #: 236-P ADM IN M.R.#: [id number] Admission: 08/18/19 Attend Phys: Ashtyn Caballero Discharge: Date of : 50 Report #: [id number] THIS REPORT FOR: cc: Magaly Acuna MD, Karla L. MD Lundgren,Zuhair Bone MD LOCATED WITHIN [facility] ~ THIS REPORT FOR: //name// [facility] Test Date: 2019-08-23 Test Time: 14:36:00 Pat Name: KARI MIRELES Department: Room: 236 P Gender: F Bowl Attendant: Maritza MORRISON : 1950 Requested By: Robles Moses Order Number: [id number] MD: Zuhair Bruce Measurements Intervals [place] Rate: 98 P: 56 WY: 153 QRS: 38 QRSD: 94 T: 50 QT: 375 QTc: 479 Interpretive Statements Sinus rhythm Poor septal R wave progression Compared to ECG 04/23/2016 11:24:04 Septal Q waves are now present First degree AV block no longer present Electronically Signed On 08-24-2019 9:07:19 CDT by Zuhair Bruce [email or web address] <ELECTRONICALLY SIGNED> By: Zuhair Bruce MD, FAC 08/24/19 0907 [id number] [id number] Zuhair Bruce MD, FACC /EPI
--- NOTE | 2019-09-03 19:00 | NUR ---
PATIENT PROGRESSING SLOWLY TOWARDS OUTCOME GOALS EVIDENT BY TOLERATING TUBE FEEDINGS AND URINE OUTPUT GREATER THAN 30 ML/HR. VENT SETTINGS UNCHANGED AND REMAINS ON VERSED AND PROPOFOL DRIPS, FENTANYL GIVEN FOR ELEVATED HEART RATE AND RESP RATE WITH RELIEF. MONITOR SINUS TACH. ATTEMPTED TO CALL FOR FACE TIME AT 1730 BUT PHONE WAS LOCKED WITH UNKNOWN PASS CODE. REASSURANCE GIVEN TO PATIENT.
--- NOTE | 2019-09-03 19:56 | NUR ---
LUIS FELIPE CALLED BY THIS NURSE AND UPDATED TO 'S STATUS. REASSURANCE GIVEN, INFORMED THAT HER CULTURE FROM TUESDAY 08/29 WAS STILL POSITIVE FOR COVID.
[2019-09-04] VITALS (24 sets, daily range): BP systolic 96–150; BP diastolic 58–96
--- NOTE | 2019-09-04 03:00 | NUR ---
ASSESSMENTS AND MEDS GIVEN ARE CHARTED. PT RANDOMLY OPENS EYES. SEDATION VACATION; PT FACIAL GRIMACES TO PAIN BUT DOESNT FOLLOW COMMANDS. PT HAD BEEN IN ST WITH HR IN THE 120S TO 130S SINCE THE START OF MY SHIFT. RAI CLARK NOTIFIED, ONETIME FLUID BOLUS OF 500 ORDERED. HR BEGAN TRENDING DOWN WITH MOST RECENT LOWEST BEING 113. PT HAS BEEN TACHYPNEIC WITH RR IN THE 30S ALL NOC HOWEVER VENT SET RATE IS 14. PT APPEARS STABLE OTHERWISE. AND SONS WERE ABLE TO FACETIME PT LAST NOC. STATED HE WILL CALL AGAIN AT 0830 THIS MORNING. WILL CONTINUE TO CLOSELY MONITOR.
[2019-09-04 05:15] LABS: CALCIUM 10.6 mg/dL (8.5-10.1); CREATININE 0.7 mg/dL (0.6-1.0)
--- NOTE | 2019-09-04 12:55 | NUR ---
PT REMAINS ON VENT THIS AM WITH PROPOFOL AND VERSED GTT'S. SEDATION VACATION DONE THIS AM X1 HR AND PT AWAKE BUT DOES NOT FOLLOW ANY COMMANDS. HR ELEVATED 120-130'S WHEN SEDATION OFF. SEDATION RESTARTED. DR AUSTIN HERE AND DISCUSSED WITH HIM. PT STARTED ON IV METOPROLOL AND HE REQUESTED THAT SEDATION TURNED OFF. PT OFF SEDATION SINCE 0845. EYES OPEN AND APPEARS TO BE TRACKING WITH EYES. MOVING ALL EXTREMITIES SPONT BUT NOT FOLLOWING ANY COMMANDS AT THIS TIME. CONSULT TO NEURO AND DR KABA HERE TO SEE PT THIS AM. CPAP TRIAL INITIATED AT 1210 OFF SEDATION. PT TOLERATING WELL AT THIS TIME. WILL CONTINUE TO MONITOR PATIENT.
[2019-09-04 14:13] LABS: BE(vivo) 1.3 mmol/L (-2 to +3); HCO3 25.3 mmol/L (22.0-26.0); PCO2 37.9 mmHg (35.0-45.0); PO2 101.6 mmHg (80.0-100.0); pH 7.443 (7.360-7.450); sO2 97.9 % (92.0-98.0)
--- NOTE | 2019-09-04 15:38 | NUR ---
ABG'S DONE FOLLOWING CPAP TRIAL AND DISCUSSED RESULTS AND PT STATUS WITH DR ESCOBAR. RR REMAINS IN 30'S. PER DR ESCOBAR RETURN TO PRIOR A/C VENT SETTING AND RESTART PROPOFOL GTT AND ADD FENT GTT. 1445 CHANGED BACK TO AC VENT SETTINGS.
[2019-09-05] VITALS (27 sets, daily range): BP systolic 87–125; BP diastolic 49–82
[2019-09-05 06:47] LABS: CALCIUM 10.4 mg/dL (8.5-10.1); CREATININE 0.6 mg/dL (0.6-1.0); POTASSIUM 3.5 mmol/L (3.5-5.1)
--- NOTE | 2019-09-05 08:30 | NUR ---
ASSESSMENTS CHARTED, MEDS GIVEN CHARTED. PATIENT RESTING IN BED ON VENTILATOR, RECEIVING FENTANYL AND PROPOFOL. OPENS EYES SPORATICALLY, SINUS TACH ON TELEMETRY MOST OF SHIFT. PATIENT IN RESTRAINTS TO PREVENT PULLING AT TUBES. PATIENT'S OG TUBE BECAME UNTAPED DURING SHIFT AND WHEN FOUND WAS AT 15. TURNED OFF TUBE FEED, REPOSITIONED TUBE, SUCTIONED. HAD XRAY VERIFY PLACEMENT OF TUBE AND THEY CONFIRMED IT IS IN THE STOMACH. PATIENT'S MARIEL CHATTED WITH HIS , HE WAS VERY HAPPY TO SEE HER EYES OPEN AND BLINKING. PLAN IS TO CONTINUE SUPPORT AND TRY TO WEAN HER OFF VENTILATOR.
--- NOTE | 2019-09-05 10:30 | NUR ---
ON THE VENT, LIGHTLY SEDATED. OPENS EYES BUT DOESN'T FOLLOW COMMANDS. VITALS STABLE. ASSESSEMENT DOCUMENTED. TOLERATING TUBEFEEDING WITH MINIMAL RESIDUALS. WILL CONTINUE WITH POC.
--- NOTE | 2019-09-05 13:23 | NUR ---
CALLED A COUPLE AT TIMES WHILE I WAS IN ISOLATION ROOMS, I CALLED HIM BACK AND UPDATED HIM AND ANSWERED HIS QNS.
--- NOTE | 2019-09-05 15:45 | NUR ---
PATIENT PLACED ON CPAP BY RT PER DR. ESCOBAR'S ORDER.
[2019-09-05 16:50] LABS: BE(vivo) 3.6 mmol/L (-2 to +3); HCO3 28.5 mmol/L (22.0-26.0); PO2 81.2 mmHg (80.0-100.0); sO2 96.1 % (92.0-98.0)
[2019-09-06] VITALS (19 sets, daily range): BP systolic 102–127; BP diastolic 64–79
--- NOTE | 2019-09-06 03:13 | NUR ---
PT SEEMS TO BE DOING BETTER TODAY. PT IS ABLE TO FOLLOW COMMANDS. NOD TO YES AND NO QUESTION. WAS ABLE TO SQUEEZ MY HANDS AND WIGGLE HER TOES. SHE WAS ALSO ABLE TO TRACK MOVEMENT WITH HER EYES. PT RESTED WELL ALL NOC. NO TACHYPNEIC EVENT ALL THROUGH THE NOC. BEGAN FENTANYL WEANING. PT REMAINS STABLE WITH INTUBATION. PT IS PROGRESSING WELL TOWARDS POC.
[2019-09-06 05:48] LABS: CALCIUM 10.2 mg/dL (8.5-10.1); CREATININE 0.5 mg/dL (0.6-1.0)
[2019-09-06 07:48] LABS: BE(vivo) 2.9 mmol/L (-2 to +3); HCO3 27.5 mmol/L (22.0-26.0); PCO2 42.5 mmHg (35.0-45.0); PO2 90.8 mmHg (80.0-100.0); pH 7.429 (7.360-7.450); sO2 97.1 % (92.0-98.0)
[2019-09-07] VITALS (24 sets, daily range): BP systolic 104–127; BP diastolic 62–83
[2019-09-07 03:08] LABS: BE(vivo) 3.4 mmol/L (-2 to +3); PCO2 42.8 mmHg (35.0-45.0); PO2 99.9 mmHg (80.0-100.0); pH 7.434 (7.360-7.450); sO2 97.7 % (92.0-98.0)
[2019-09-07 05:59] LABS: ABSOLUTE NEUTROPHILS 6.5 thou/uL (1.4-8.2); BASOPHILS 0.6 % (0.0-2.0); EOSINOPHILS 7.3 % (0.0-3.0); HEMATOCRIT 26.6 % (37.0-47.0); HEMOGLOBIN 8.7 gm/dL (12.0-15.0); LYMPHOCYTES 16.6 % (24.0-44.0); MCH 30.1 pg (26.0-34.0); MCHC 32.9 g/dL (28.0-37.0); MCV 91.5 fL (80.0-100.0); MONOCYTES 11.1 % (1.0-8.0); PLATELET COUNT 463 thou/uL (150-400); POLYS 64.4 % (36.0-66.0); RBC 2.91 mil/uL (4.20-5.00); RDW 13.1 % (10.5-14.5)
[2019-09-07 06:23] LABS: INR 1.1; PROTIME 10.8 Seconds (9.3-11.4)
--- NOTE | 2019-09-07 07:41 | NUR ---
PT ABLE TO FOLLOW COMMANDS. PT NODDING HER HEAD WHEN ASKED QUESTIONS. CHART CHECK. REPORT GIVEN TO ONCOMING RN. PT PROGRESSING TOWARDS GOAL. CONTINUE TO MONITOR.
--- NOTE | 2019-09-07 13:47 | NUR ---
SW reviewed chart and spoke with nursing and attending physician. Pt remains in ICU, intubated and sedated. Surgery consulted to evaluate pt for trach/peg placement. Surgeon discussed with pt's spouse, who is agreeable with trach/peg placement. Follow up COVID-19 test needed. SW is following to assist as needed with discharge planning.
--- NOTE | 2019-09-07 15:26 | NUR ---
PT INTUBATED. RT/PULMONOLOGY DID CPAP TRIAL FROM 6631-1080. PT TOLERATED WELL. FENTYNL GTT FOR COMFORT. ADEQUATE URINE OUTPUT. PLAN OF CARE IS TO TRACH/PEG THIS PT ONCE COVID RESULTS HAVE POSTED. PT FOLLOWS COMMANDS, NODS HEAD YES OR NO APPROPRIATLY TO QUESTIONS. TUBE FEED AT GOAL. PT AND FAMILY UPDATED AND EDUCATED. PROGRESSING TOWARDS PLAN OF CARE EVIDANCE BY QUALITY CPAP TRIAL. WILL CONTINUE TO MONITOR.
[2019-09-08] VITALS (51 sets, daily range): BP systolic 54–161; BP diastolic 36–101
[2019-09-08 04:42] LABS: BE(vivo) 2.8 mmol/L (-2 to +3); HCO3 27.5 mmol/L (22.0-26.0); PO2 90.2 mmHg (80.0-100.0); pH 7.424 (7.360-7.450)
[2019-09-08 04:55] LABS: CALCIUM 9.5 mg/dL (8.5-10.1); CREATININE 0.6 mg/dL (0.6-1.0); POTASSIUM 4.3 mmol/L (3.5-5.1); TOTAL BILIRUBIN 0.3 mg/dL (<0.1-1.0); TOTAL PROTEIN 7.7 g/dL (6.4-8.2)
[2019-09-08 05:09] LABS: HEMATOCRIT 26.4 % (37.0-47.0); HEMOGLOBIN 8.7 gm/dL (12.0-15.0); MCH 30.2 pg (26.0-34.0); MCHC 32.9 g/dL (28.0-37.0); MCV 91.8 fL (80.0-100.0); PLATELET COUNT 438 thou/uL (150-400); RBC 2.88 mil/uL (4.20-5.00); RDW 13.4 % (10.5-14.5); WBC 10.5 thou/uL (4.0-11.0)
[2019-09-08 08:08] LABS: ABSOLUTE NEUTROPHILS 6.2 thou/uL (1.4-8.2); ANISOCYTOSIS SLIGHT; ATYPICAL LYMPHS 1 %; POIKILOCYTOSIS SLIGHT
--- NOTE | 2019-09-08 16:00 | NUR ---
SW reviewed chart and spoke with attending physician. Pt's repeat COVID-19 test was positive. Pt is tolerating vent weaning trial. Trach/peg placement anticipated for early next week. SW is following to assist as needed with discharge planning.
--- NOTE | 2019-09-08 19:15 | NUR ---
PATIENT BECAME VERY RESTLESS, SITTING UP IN BED AND BANGING ON THE SIDE RAILS. SHE HAD TEARS COMING FROM HER EYES. HER RESPIRATORY RATE WAS IN THE UPPER 20'S AND HER HEART RATE WAS 130'S-140'S. OXYGENATION REMAINED 100%. ANOTHER RN WENT INTO ROOM TO ASSIST IN CALMING HER AND PROVIDED SUCTION PATIENT WAS COUGHING/GAGGING. SEDATION WAS ADJUSTED. NURSE THEN ENTERED THE ROOM AND ASKED PATIENT IF SHE WERE IN PAIN, SHE NODDED YES. NURSE ASKED IF HER PAIN WAS IN HER CHEST/LUNGS, SHE NODDED NO. NURSE THEN ASKED IF SHE FELT LIKE SHE WAS GOING TO VOMIT. PATIENT NODDED YES. MEDICATION GIVEN, SEDATION ADJUSTED. PATIENT SLIGHLY MORE CALM AT THIS TIME. STILL AWAKE WITH TEARS. TUBE FEEDING STOPPED. NURSE TO TALK WITH PRIMARY CARE PHYSICIAN. HEART RATE NOW 115. RESPIRATORY RATE IS NOW 24. OXYGENATION IS NOW 100%. BLOOD PRESSURE 119/79 NURSE TO GIVE REPORT TO ONCOMING RN FOR CONTINUATION OF CARE.
[2019-09-09] VITALS (64 sets, daily range): BP systolic 86–123; BP diastolic 56–79
--- NOTE | 2019-09-09 04:35 | NUR ---
ASSUMED PT CARE AROUND 1920. PT HAD BECAME AROUSED WITH ELEVATED HR IN THE 120'S, RESPIRATORY RATE IN THE HIGH 20'S, OXYGENATION REMAINED AT 100%. PT WAS SUCTIONED AND GIVEN MEDICATION FOR UPSET STOMACH. PT SEDATION WAS INCREASED AND FENTANYL WAS DECREASED TO MAINTAIN SATISFACTORY HEART RATE AND BLOOD PRESSURES. PT TUBE FEEDING WAS RESTARTED WITH NO ISSUE THRU NIGHT. PT REMAINED CALM AND STABLE THRU NIGHT. PT IS AROUSABLE WHEN ENTERING ROOM AND RESPONDS APPROPRIATELY TO YES/NO QUESTIONS.
[2019-09-09 05:44] LABS: ABSOLUTE NEUTROPHILS 5.8 thou/uL (1.4-8.2); BASOPHILS 0.9 % (0.0-2.0); EOSINOPHILS 11.1 % (0.0-3.0); HEMATOCRIT 25.4 % (37.0-47.0); HEMOGLOBIN 8.6 gm/dL (12.0-15.0); LYMPHOCYTES 20.7 % (24.0-44.0); MCHC 33.9 g/dL (28.0-37.0); MCV 91.6 fL (80.0-100.0); MONOCYTES 8.8 % (1.0-8.0); PLATELET COUNT 399 thou/uL (150-400); POLYS 58.5 % (36.0-66.0); RBC 2.77 mil/uL (4.20-5.00); RDW 13.3 % (10.5-14.5); WBC 9.9 thou/uL (4.0-11.0)
[2019-09-09 06:34] LABS: CALCIUM 9.7 mg/dL (8.5-10.1); CREATININE 0.6 mg/dL (0.6-1.0); POTASSIUM 4.5 mmol/L (3.5-5.1); TOTAL BILIRUBIN 0.3 mg/dL (<0.1-1.0); TOTAL PROTEIN 7.7 g/dL (6.4-8.2)
--- NOTE | 2019-09-09 10:15 | NUR ---
ASSUMED CARE @ 0700 09/09/19, PT ASSESSMENTS AND VSS COMPLETE PER ICU PROTOCOL. PT ABLE TO FOLLOW COMMANDS, CPAP INITIATED @ 0740 , PT TOLERATING WELL. DR ALMANZAR HERE THIS AM TO ROUND, NO NEW ORDERS AT THIS TIME. DR MONTES ROUNDED VIA TELE-MONITOR, NO NEW ORDERS RECIEVED.
[2019-09-10] VITALS (63 sets, daily range): BP systolic 91–124; BP diastolic 51–77
--- NOTE | 2019-09-10 14:02 | NUR ---
SW reviewed chart and spoke with nursing and attending physician. Pt's follow up COVID-19 test is negative. Pt continues vent weaning trials. Plan for trach/peg placement anticipated for next week. LENI spoke with pt's , Reimgio, via phone to provide update and discuss plan of care. Lengthy discussion with pt's regarding need for post-acute placement in an LTAC setting for continued vent weaning and medical mgmt. Options provided for LTACs. Pt's spouse states that [facility] would be his preference due to location. SW explained need for clinical acceptance and insurance authorization. Pt's spouse verbalized understanding and is agreeable with referral to [facility]. Pt's spouse requested assistance with having pt complete a financial DPOA document. SW explained that [facility] is only able to assist with [facility] healthcare DPOA documentations. Documentation can be provided to pt's bank to notify of her hospitalization. SW and pt's spouse conference called with pt's bank, who confirmed they will need a financial DPOA, in order to allow pt's spouse to be added to her bank account. Pt's spouse states that several of her bills are past due and he is wanting to get things in place. SW further explained that physicians will need to indicate that she is able to appoint a DPOA and complete a legal document. Pt's spouse verbalized understanding. SW to discuss with Director of Case Mgmt. Pt's spouse states that he recently completed his self-quarantine and is doing well. He has good family support during this time. Pt states that they have been for 27 years and have only been apart for less than 24 hours. He has been able to speak to pt via phone several times. LENI discussed case with [facility] liaison. They will need two negative COVID-19 screens prior to being able to accept pt into their facility. LENI provided this info to attending physician. LENI is following and is available to assist as needed with discharge planning.
--- NOTE | 2019-09-10 18:24 | NUR ---
PATIENT HAS NOT INDICATED ANY SIGN PAIN THROUG THE DAY. SHE IS EASILY AWOKEN IF SHE IS SLEEPING AND SHE CAN COMMUNITCATE WITH A YES OR NO NOD OF HER HEAD. CALLED VIA [employer] AND THEY COMMUNICATED FOR ABOUT FIVE MINUTES. FECAL MANAGEMENT IN PLACE AND FOLE ALSO IN PLACE DRAINING CLEAR YELLOW URINE. PEG TUBE CONT ON LOW VOLUME SHE DID NOT TOLERATE WELL LAST NIGHT. i DID INCREASE HER RATE TO 5O AT NOON AND SHE STARTED TO GAG. RATE REDUCE BACK TO 45. WILL CONT WITH PLAN OF CARE.
[2019-09-11] VITALS (72 sets, daily range): BP systolic 87–119; BP diastolic 49–76
[2019-09-11 04:21] LABS: ALBUMIN 2.9 g/dL (3.4-5.0); CALCIUM 9.1 mg/dL (8.5-10.1); CREATININE 0.6 mg/dL (0.6-1.0); POTASSIUM 4.1 mmol/L (3.5-5.1); TOTAL BILIRUBIN 0.3 mg/dL (<0.1-1.0); TOTAL PROTEIN 7.6 g/dL (6.4-8.2)
--- NOTE | 2019-09-11 05:40 | NUR ---
ASSUME CARE 1900. PT/VITALS STABLE. PATIENT IS STILL ON VENT BUT IS BEING WEANED OFF. PT IS ALERT AND FOLLOWS COMMANDS. FACE TIMES WITH FAMILY AND SEEMS TO BE IMPROVING. NO RESP DISTRESS NOTED. ASSESSMENT CHARTED. PROGRESSING WELL WITH POC. PLAN IS TO POSSIBLY EXTUBATE PATIENT WITHIN A FEW DAYS IF SHE CONTINUES TO TOLERATE BEING WEANED OFF THE VENT. ADEQUATE URINE OUTPUT NOTED. SOFT UNFORMED BMs NOTED. WILL CONTINUE TO MONITOR AND FOLLOW WITH POC
--- NOTE | 2019-09-11 14:20 | NUR ---
ASSUMED CARE AT 0700. ASSESSMENTS DOCUMENTED. PT CONTINUES TO BE ON VENT, FOLLOWS COMMANDS, EOMI. OLIGURIC; PHYSICAN NOTIFIED, NO NEW ORDERS YET. NO BM TODAY. PT ON CPAP TRAIL. EXTUBATION VS. TRACH STILL PENDING. POSSIBLE PEG PLACEMENT IF SECOND NEGITIVE COVID RESULT IS OBTAINED. PROGRESSSING TOWARDS POC EVIDANCE BY QUALITY CPAP TRIAL. WILL CONTINUE TO MONITOR.
[2019-09-12] VITALS (28 sets, daily range): BP systolic 83–120; BP diastolic 50–71
[2019-09-12 07:55] LABS: ABSOLUTE NEUTROPHILS 7.1 thou/uL (1.4-8.2); BASOPHILS 1.3 % (0.0-2.0); EOSINOPHILS 9.5 % (0.0-3.0); HEMATOCRIT 23.3 % (37.0-47.0); HEMOGLOBIN 7.7 gm/dL (12.0-15.0); LYMPHOCYTES 15.1 % (24.0-44.0); MCH 30.5 pg (26.0-34.0); MCHC 33.2 g/dL (28.0-37.0); MONOCYTES 8.3 % (1.0-8.0); PLATELET COUNT 324 thou/uL (150-400); POLYS 65.8 % (36.0-66.0); RBC 2.54 mil/uL (4.20-5.00); RDW 13.9 % (10.5-14.5); WBC 10.8 thou/uL (4.0-11.0)
[2019-09-12 08:12] LABS: ALBUMIN 2.8 g/dL (3.4-5.0); CALCIUM 8.7 mg/dL (8.5-10.1); CREATININE 0.4 mg/dL (0.6-1.0); POTASSIUM 3.8 mmol/L (3.5-5.1); TOTAL BILIRUBIN 0.3 mg/dL (<0.1-1.0); TOTAL PROTEIN 6.9 g/dL (6.4-8.2)
--- NOTE | 2019-09-12 08:22 | NUR ---
All assessment and care documented. Pt is on vent. Follows comands able to make needs know with head nods reliable yes and no. Patient became hypotensive throughout the night. MD notified new order provided. Second negative Covid test. Patient stable progressing toward goals.
--- NOTE | 2019-09-12 14:00 | NUR ---
gissell bailey assisted pt with lengthy face time call with her .
--- NOTE | 2019-09-12 16:00 | NUR ---
DR. MUSA CALLED RE EXTRA COVID TEST ORDERED TODAY WHEN ONE WAS STILL PENDING FROM YESTERDAY. AWAITING CALL BACK.
--- NOTE | 2019-09-12 18:30 | NUR ---
AT 1700, DR. BUENO PRESENT. PT COVID NEGATIVE X 2, ORDER RECEIVED TO MOVE PT OUT OF NEGATIVE AIRFLOW ROOM/ISOLATION. TRANSFERRED TO ICU #243 PER ICU BED WITH ASSISTANCE OF 2 RN'S AND RT. WELL TOLERATED.
--- NOTE | 2019-09-12 19:05 | NUR ---
PT ON CPAP TRIAL FROM 704 TO 1904. RT REPLACED PT BACK ON ASSIST CONTROL.
--- NOTE | 2019-09-12 19:45 | NUR ---
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 informed them of pt moving to room # 243 per pt's progress with covid negative results x 2. discussed with family in detail the plan for trach/peg and benefits vs risks. both family members in agreement with trach/peg placement, telephone consent obtained. pt progressing.
[2019-09-13] VITALS (68 sets, daily range): BP systolic 88–151; BP diastolic 51–90
--- NOTE | 2019-09-13 00:09 | NUR ---
TUBE FEEDING HELD PER DR. MA ORDER.
[2019-09-13 04:04] LABS: HEMATOCRIT 23.8 % (37.0-47.0); HEMOGLOBIN 7.9 gm/dL (12.0-15.0); MCH 30.6 pg (26.0-34.0); MCHC 33.1 g/dL (28.0-37.0); MCV 92.6 fL (80.0-100.0); RBC 2.57 mil/uL (4.20-5.00); RDW 13.9 % (10.5-14.5); WBC 9.7 thou/uL (4.0-11.0)
[2019-09-13 04:16] LABS: CALCIUM 8.9 mg/dL (8.5-10.1); CREATININE 0.5 mg/dL (0.6-1.0); POTASSIUM 3.7 mmol/L (3.5-5.1)
--- NOTE | 2019-09-13 06:30 | NUR ---
PATIENT ALERT TO SELF AND SITUATION, ABLE TO FOLLOW COMMANDS. NOD TO YES/NO QUESTIONS. PATIENT ON 30% FIO2, OXYGEN SATURATION MAINTAINED ABOVE 90%. PATIENT CPAP TRIAL ON 09/12/19 FROM 2672-4547, NO RESPIRATORY EVENTS NOTED. SPOKE WITH ABOUT NEW ORDER FOR PEG/TRACH, VERIFIED WITH SECONDARY NURSE AND CONSENT COMPLETED. AND SONS VIRTUALLY CHATTED AT 2200 WITH PATIENT. PLAN DISCUSSED. MEDINA PATENT WITH ADEQUATE OUTPUT. TUBE FEEDING HELD AT 0000 PER ORDERS, BLOOD GLUCOSE ABOVE 100. NO SIGN OF ACUTE DISTRESS NOTED AT THIS TIME. WILL CONTINUE TO MONITOR.
--- NOTE | 2019-09-13 10:13 | NUR ---
PT'S VIC MIRELES CALLED AND MR. MIRELES GAVE VERBAL CONSENT FOR ANESTHESIA. MR. MIRELES SPOKE WITH DR AND RN AND GAVE BOTH VERBAL CONSENT. RN THEN WENT IN PT'S ROOM AND PT'S AND 2 SONS CALLED PT TO TALK TO PT VIA PT'S CELL PHONE/VIDEO CALL.
--- NOTE | 2019-09-13 11:55 | NUR ---
1138- PT TO OR FOR TRACH AND PEG. TRANSPORTED VIA BED WITH 4 OR STAFF MEMEBERS.
--- NOTE | 2019-09-13 16:07 | NUR ---
LENI reviewed chart and spoke with nursing and attending physician. Pt remains in Enhanced Isolation. Pt had trach and peg placed today. Pt is able to follow simple commands. Attending physician states pt has the capacity to appoint a DPOA for healthcare decisions. Pt was able to visit with her and family earlier today. LENI spoke with pt's spouse via phone to provide update and discuss post-acute placement in an LTAC. Pt's spouse requests referral to [facility] due to location and continuity of care with physicians. LENI explained that pt should be able to appoint a healthcare DPOA document, which can be completed at [facility]. materials planner/production planner to fax referral to [facility]. SW notified LTAC liaison of new referral. LENI is following to assist as needed with discharge planning.
--- NOTE | 2019-09-13 16:51 | NUR ---
FAXED REFERRAL TO [facility]. OF OP SPOKE WITH RAFAEL IN ADM HE RECEIVED REFERRAL AND WILL REVIEW. DP TO FOLLOW.
--- NOTE | 2019-09-13 20:02 | NUR ---
PT HAD TRACHEOSTOMY PLACED TODAY. SMALL AMOUNT OF BLOODY DRAINAGE PRESENT AROUND TRACH SITE. GAUZE DRESSING AROUND TRACH CHANGED X2 THIS SHIFT. PT REMAINS VENTED AT THIS TIME. PT IS COUGHING AND INLINE SUCTION IS PRODUCING SMALL TO MODERATE AMOUNTS OF BLOOD TINGED SECRETIONS. PT NOW HAS VERY SMALL AMOUNT OF ORAL SECRETIONS WHICH REMAIN CLEAR.
[2019-09-14] VITALS (24 sets, daily range): BP systolic 89–126; BP diastolic 50–74
--- NOTE | 2019-09-14 00:52 | NUR ---
0 - PT'S TALKED TO PATIENT ON HER PHONE, WITH NURSE IN ROOM. PT WAS AWAKE AND ALERT AND WOULD NOD HER HEAD TO 'S QUESTIONS. NURSE UPDATED PT'S ON HER CONDITION AND EVENTS OF THE DAY.
--- NOTE | 2019-09-14 03:45 | NUR ---
PT C/O ABDOMINAL PAIN AT BEGINNING OF SHIFT. DILAUDID DRIP INFUSING. PT WAS ALSO GIVEN TYLENOL VIA HER PEG TUBE. PT LATER DENIED ANY PAIN, BUT STATED SHE JUST FELT GENERALLY UNCOMFORTABLE. PT WAS REPOSITIONED AND THEN WAS ABLE TO GO TO SLEEP. WHEN AWAKE, PT FOLLOWS SIMPLE COMMANDS AND NODS HEAD YES/NO TO QUESTIONS. TF INFUSING VIA NEW PEG TUBE. PT TOLERATING TF WELL WITH NO RESIDUALS SO FAR THIS SHIFT. ORAL CARE PROVIDED. REPOSITIONED TO PREVENT SKIN BREAKDOWN. PT HAS GOOD COUGH WITH SMALL TO MODERATE AMOUNT OF TRACHEAL SECRETIONS. VSS. FALL PRECAUTIONS IN PLACE. PROGRESSING TOWARD POC GOALS.
[2019-09-14 12:04] LABS: BE(vivo) 0.2 mmol/L (-2 to +3); PCO2 35.1 mmHg (35.0-45.0); PO2 100.9 mmHg (80.0-100.0); pH 7.452 (7.360-7.450); sO2 97.9 % (92.0-98.0)
--- NOTE | 2019-09-14 15:38 | NUR ---
LENI reviewed chart and spoke with nursing and attending physician. Pt is s/p trach and peg tube placement and is progressing towards goals for discharge. LENI requested Spiritual Care to assist with completion of healthcare DPOA document. LENI spoke with [facility] liaison, who confirms they are able to accept pt when she is medically stable. Discharge is anticipated soon. LENI spoke with pt's spouse, Remigio, to provide update and discuss discharge plan. Pt's spouse is aware and agreeable with discharge plan. [facility] cole contacted pt's spouse earlier today to answer his questions. LENI is following to assist as needed with discharge planning.
--- NOTE | 2019-09-14 17:44 | NUR ---
PT ALERT AND AWAKE. PT FOLLOWING SIMPLE COMMANDS, RESPONDS TO QUESTIONS BY NODING HER HEAD YES OR NO. PT REMAINS VENT/TRACH. VSS, SR ON TELE. DILUADID AND PREDEDEX GTTS INFUSING PER ORDER. MEDINA TO DD. PT TOLERATING TUBE FEEDING WELL. SPOKE/FACETIME WITH PT VIC UPDATES GIVEN. PT PROGRESSING TOWRADS POC GOALS.
[2019-09-15] VITALS (20 sets, daily range): BP systolic 84–138; BP diastolic 52–86
--- NOTE | 2019-09-15 00:44 | NUR ---
1939 RETURNED CALL TO . PATIENT RESTING AT THIS TIME WITH EYES CLOSED. UPDATE GIVEN OF STATUS AND STATED HE WOULD FACE TIME TOMORROW WITH .
--- NOTE | 2019-09-15 05:28 | NUR ---
SLEPT PART OF SHIFT. FOLLOWS COMANDS TO MOVE TOES, FLEX FEET AND SQUEEZE HANDS. SINCE TURNING DILAUDID BACK UP TO 2MG/HR PATIENT HAS BEEN COMFORTABLE AND RESTING. KEEPING ARMS ELEVATED ON PILLOWS FOR GENERALIZED EDEMA. WORKING ON GOALS AND PLAN OF CARE FOR NOC. PROGRESSING SLOWLY TOWARDS TRANSFER TO [facility], PLAN FOR TODAY OR TOMORROW. WHEN SUCTIONED HAS SMALL AMOUNT OF SECRETIONS. OCCASIONAL COUGHING. CONTINUE TO ASSES CLOSELY.
--- NOTE | 2019-09-15 09:30 | NUR ---
SPOKE WITH RAFAEL IN ADM AT [facility] THEY CAN ACCEPT PT AT DISCHARGE. DP TO FOLLOW.
[2019-09-15] MEDS ORDERED: LANTUS SUBQ (13:27)
[2019-09-15] MEDS ORDERED: FAMOTIDINE 10 M10 MG PO (13:27)
[2019-09-15] MEDS ORDERED: AMANTADINE 100100 MG PO (13:27)
[2019-09-15] MEDS ORDERED: ADULT TUSS100 MG/5 M PER TUBE (13:27)
--- NOTE | 2019-09-15 15:25 | NUR ---
PT DISCHARGING TODAY TO [facility] OF [facility]TC FAXED DC ORDERS/SUMMARY TO FACILITY SPOKE WITH RAFAEL IN ADM HE RECEIVED ORDERS. TRANSPORTATION ARRANGED BY AMBULANCE ([facility]) DUE TO PT BEING VENTILATOR DEPENDENT FOR 1800 TODAY. NOTIFIED PT'S OF DC AND TIME OF TRANSPORT HE ASKED ABOUT DPOA PAPERWORK AND WHEN PROJECT CONSTRUCTION ASSISTANT MANAGER BEN WENT TO GET SIGNATURE PT WAS JUST GIVEN PAIN MED AND UNABLE TO SIGN. ROBERT WILL F/U WITH PAPERWORK AT FACILITY I NOTIFIED PT'S OF THIS. UNIT NOTIFIED AND AMB FORM FAXED TO UNIT AND SPOKE WITH BASILIO JAUREGUI SHE WILL PUT IT WITH CHART COPY. RN TO CALL REPORT TO [phone].
--- NOTE | 2019-09-15 16:52 | NUR ---
DISCHARGE NOTE: SW reviewed chart and spoke with attending physician. Pt is medically stable for discharge to [facility] today. SW notified [facility] liaison, who confirmed they are able to accept pt today. Request for 1800 ambulance transportation. exercise planner coordinated. LENI spoke with pt's via phone to provide update. Spiritual care attempted to complete DPOA ppwk earlier today. Pt had been given pain meds and was unable to complete. LENI notified [facility] liaison to request SW team at the facility follow up with pt. Pt's spouse is aware and in agreement with discharge plan. No additional SW needs identified at this time, but is available to assist should needs arise.
--- NOTE | 2019-09-15 17:40 | NUR ---
stomach upset, zofran 4 mg iv given. pt anxious, ativan 1 mg iv given with relief. preparing for transfer to [facility].
--- NOTE | 2019-09-15 18:20 | NUR ---
STANLEY MIRELES, SPOUSE CALLED X 2 TODAY, UPDATED. HE FACE TIMED WITH HER. TOLERATED TRACH WHILE ON VENT, SUCTIONING SECRETIONS PER TRACH INTERMITTENTLY, TOLERATING TUBE FEEDINGS AND HAD ONE STOOL TODAY. AT DISCHARGE HE SPOKE TO HER OVER THE PHONE. EMS PRESENT GIVEN COPY OF RECORDS AND FORM REGARDING EMS TRANSFER TO [facility]. ALL OF PT'S ITEMS SENT WITH HER INCLUDING HER PHONE, THE MECHANICAL DETAILER, TEETH, SHOES/SLIPPERS, SOME CLOTHING AND MISCELLANEOUS ITEMS. TRACH SPECIFIC OBTURATOR SENT, EMS STAFF AWARE.
== END 2019-09-15 18:15 | DRG 4 ==
LOC: ER 20:11 → 3W 22:10 → EROBS 22:10 → ICU 22:10 → 3W 23:18 → ICU 08-21 13:28
PROVIDERS: Emergency Medicine; Hospitalist; Internal Medicine Infectious Disease; Internal Medicine Pulmonary Disease; Nurse Practitioner Family; Pediatrics; Specialist; ADMIT Hospitalist
PROC: 5A1955Z Respiratory Ventilation, Greater than 96 Consecutive Hours (ICD-10-PCS; principal; 2019-08-22)
PROC: 0BH17EZ Insertion of Endotracheal Airway into Trachea, Via Natural or Artificial Opening (ICD-10-PCS; principal; 2019-08-22)
PROC: 02HV33Z Insertion of Infusion Device into Superior Vena Cava, Percutaneous Approach (ICD-10-PCS; 2019-08-23)
PROC: 5A09357 Assistance with Respiratory Ventilation, Less than 24 Consecutive Hours, Continuous Positive Airway Pressure (ICD-10-PCS; 2019-09-07)
PROC: 5A09357 Assistance with Respiratory Ventilation, Less than 24 Consecutive Hours, Continuous Positive Airway Pressure (ICD-10-PCS; 2019-09-09)
PROC: 5A09357 Assistance with Respiratory Ventilation, Less than 24 Consecutive Hours, Continuous Positive Airway Pressure (ICD-10-PCS; 2019-09-11)
PROC: 0B113F4 Bypass Trachea to Cutaneous with Tracheostomy Device, Percutaneous Approach (ICD-10-PCS; 2019-09-13)
PROC: 0DH68UZ Insertion of Feeding Device into Stomach, Via Natural or Artificial Opening Endoscopic (ICD-10-PCS; 2019-09-13)
DX: A41.9 Sepsis, unspecified organism (principal); U07.1 COVID-19; J96.01 Acute respiratory failure with hypoxia; J12.89 Other viral pneumonia; E43 Unspecified severe protein-calorie malnutrition; N39.0 Urinary tract infection, site not specified; G93.40 Encephalopathy, unspecified; G93.1 Anoxic brain damage, not elsewhere classified; D62 Acute posthemorrhagic anemia; K21.9 Gastro-esophageal reflux disease without esophagitis; G43.909 Migraine, unspecified, not intractable, without status migrainosus; G89.4 Chronic pain syndrome; M79.7 Fibromyalgia; R65.20 Severe sepsis without septic shock; E87.6 Hypokalemia; R74.0 Nonspecific elevation of levels of transaminase and lactic acid dehydrogenase [LDH]; R73.9 Hyperglycemia, unspecified; I95.9 Hypotension, unspecified; Z90.710 Acquired absence of both cervix and uterus; Z23 Encounter for immunization; Z79.899 Other long term (current) drug therapy
CPT/HCPCS: 10078; 10203; 10879; 50101; 50386; 50403; 56525; 62110; 62900

== ENCOUNTER → 2019-12-29 | Outpatient (CLI) | payer OTHER, BC ==
[~2019-12-29] VITALS: Ht 170.2 cm; Wt 79.4 kg
[~2019-12-29] MED LIST changes: +ADULT TUSS100 MG/5 M PER TUBE; +AMANTADINE 100100 MG PO; +BENADRYL25 MG PO; +BONIVA150 MG PO; +BUTALBIT-ACETA1 EACH PO; +FAMOTIDINE 10 M10 MG PO; +FLONASE 0.05%50 MCG NASAL; +IMITREX100 MG PO; +KEFLEX500 M1 PO; +LANTUS SUBQ; +LASIX 40 MG TAB40 MG PO; +LIDODERM1 EACH TOP; +LINZESS145 MCG PO; +LUMIFY2.5 ML OPHTHALMIC; +LYRICA100 MG PO; +MEDROLDOSEPACK PO; +NAPROSYN500 M1 PO; +NORCO 7.5-3251 EACH PO; +POTASSIUM CHLO10 MEQ PO; +REQUIP XL2 MG PO; +SERTRALINE HCL100 MG PO; +SIMBRINZA 1%-0.28 ML OPHTHALMIC; +SKELAXIN 800 M800 M1 PO; +SOMA350 MG PO; +SUMATRIPTAN SU100 MG PO; +TRAMADOL 50 MG50 MG PO; +XANAX 0.5 MG0.5 M1 PO; +ZANAFLEX4 M2 PO; +ZELNORM6 MG PO
[2019-12-29 09:59] VITALS: BP 134/72
--- NOTE | 2019-12-29 10:16 | NUR ---
Pain Clinic Assessment: 1. History of Osteoarthritis: KNEES SPINE History of Rheumatoid Arthritis: DENIES 2. Height: 5 ft. 7 in. 170.2 cm. Weight: 175.0 lb. oz. 79.380 kg. Patient's BMI: 27.4 3. Vital Signs: BP: 134/72 Pulse: 75 Resp: 14 Temp: 02 Sat: 98 ECG Mon: 4. Pain Intensity: 7 5. Fall Risk: Dizziness: N Needs help standing or walking: N Fallen in the last 3 months: N Fall risk comments: 6. Patient on Blood Thinner: None 7. History of Hypertension: Y 8. Opioid Therapy greater than 6 weeks: N Opiate Contract Signed: 9. Risk Assessment Tool Provided: 5 mod 10. Functional Assessment Tool: 60/ 11. Recreational Drug Use: Never Drug Type: Tobacco Use: Never Smoker Tobacco Type: Amount or Packs/day: How Many Years: Alcohol Use: Past use Frequency: Quant:
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
== END ==
LOC: PAIN 06:50
PROVIDERS: ATTEND Anesthesiology Pain Medicine
DX: M48.061 Spinal stenosis, lumbar region without neurogenic claudication (principal); M47.816 Spondylosis without myelopathy or radiculopathy, lumbar region; U07.1 COVID-19; K63.5 Polyp of colon; K92.9 Disease of digestive system, unspecified; F98.9 Unspecified behavioral and emotional disorders with onset usually occurring in childhood and adolescence; F32.9 Major depressive disorder, single episode, unspecified; M25.50 Pain in unspecified joint; K27.9 Peptic ulcer, site unspecified, unspecified as acute or chronic, without hemorrhage or perforation; G43.009 Migraine without aura, not intractable, without status migrainosus; M79.10 Myalgia, unspecified site; G90.09 Other idiopathic peripheral autonomic neuropathy; M17.0 Bilateral primary osteoarthritis of knee; F11.20 Opioid dependence, uncomplicated; Z87.891 Personal history of nicotine dependence; Z87.738 Personal history of other specified (corrected) congenital malformations of digestive system; Z90.711 Acquired absence of uterus with remaining cervical stump

== ENCOUNTER 2020-01-02 16:53 | Emergency (ER) | payer OTHER, BC ==
[~2020-01-02] VITALS: Ht 170.2 cm; Wt 77.1 kg
[~2020-01-02 16:53] MED LIST changes: -KEFLEX500 M1 PO; -NORCO 7.5-3251 EACH PO
[2020-01-02] MEDS ORDERED: KEFLEX500 M1 PO (17:23)
[2020-01-02] MEDS ORDERED: NORCO 7.5-3251 EACH PO (18:48)
[2020-01-02 20:50] VITALS: BP 121/94
== END 2020-01-02 19:10 | disposition home or self-care (01) ==
LOC: ER 16:53
DX: S80.12XA Contusion of left lower leg, initial encounter (principal); Z90.710 Acquired absence of both cervix and uterus; Z79.899 Other long term (current) drug therapy; W01.198A Fall on same level from slipping, tripping and stumbling with subsequent striking against other object, initial encounter; Y93.89 Activity, other specified; Y92.89 Other specified places as the place of occurrence of the external cause; Y99.8 Other external cause status

== ENCOUNTER → 2020-02-02 | Outpatient (CLI) | payer OTHER, BC ==
[~2020-02-02] VITALS: Ht 170.2 cm; Wt 82.0 kg
[~2020-02-02] MED LIST changes: +KEFLEX500 M1 PO; +NORCO 7.5-3251 EACH PO
[2020-02-02 10:25] VITALS: BP 119/82
--- NOTE | 2020-02-02 10:40 | NUR ---
Pain Clinic Assessment: 1. History of Osteoarthritis: KNEES SPINE History of Rheumatoid Arthritis: DENIES 2. Height: 5 ft. 7 in. 170.2 cm. Weight: 180.8 lb. oz. 82.010 kg. Patient's BMI: 28.3 3. Vital Signs: BP: 119/82 Pulse: 72 Resp: 16 Temp: 02 Sat: 98 ECG Mon: 4. Pain Intensity: 7 5. Fall Risk: Dizziness: N Needs help standing or walking: N Fallen in the last 3 months: Y Fall risk comments: 6. Patient on Blood Thinner: None 7. History of Hypertension: Y 8. Opioid Therapy greater than 6 weeks: N Opiate Contract Signed: 9. Risk Assessment Tool Provided: 5 mod 10. Functional Assessment Tool: 60/ 11. Recreational Drug Use: Never Drug Type: Tobacco Use: Never Smoker Tobacco Type: Amount or Packs/day: How Many Years: Alcohol Use: Past use Frequency: Quant:
== END | disposition home or self-care (01) ==
LOC: PAIN 06:55
PROVIDERS: ATTEND Anesthesiology Pain Medicine
DX: M54.16 Radiculopathy, lumbar region (principal); G89.29 Other chronic pain; Z98.890 Other specified postprocedural states; Z79.899 Other long term (current) drug therapy

== ENCOUNTER → 2020-03-01 | Outpatient (CLI) | payer OTHER, BC ==
[~2020-03-01] VITALS: Ht 170.2 cm; Wt 82.6 kg
[2020-03-01 10:20] VITALS: BP 110/76
--- NOTE | 2020-03-01 10:39 | NUR ---
Pain Clinic Assessment: 1. History of Osteoarthritis: KNEES SPINE History of Rheumatoid Arthritis: DENIES 2. Height: 5 ft. 7 in. 170.2 cm. Weight: 182.0 lb. oz. 82.555 kg. Patient's BMI: 28.5 3. Vital Signs: BP: 110/76 Pulse: 77 Resp: 16 Temp: 02 Sat: 97 ECG Mon: 4. Pain Intensity: 7 5. Fall Risk: Dizziness: N Needs help standing or walking: N Fallen in the last 3 months: N Fall risk comments: 6. Patient on Blood Thinner: None 7. History of Hypertension: Y 8. Opioid Therapy greater than 6 weeks: N Opiate Contract Signed: 9. Risk Assessment Tool Provided: 5 mod 10. Functional Assessment Tool: 60/ 11. Recreational Drug Use: Never Drug Type: Tobacco Use: Never Smoker Tobacco Type: Amount or Packs/day: How Many Years: Alcohol Use: Past use Frequency: Quant:
== END | disposition home or self-care (01) ==
LOC: PAIN 06:37
PROVIDERS: ATTEND Anesthesiology Pain Medicine
DX: M54.16 Radiculopathy, lumbar region (principal); G89.29 Other chronic pain; Z98.890 Other specified postprocedural states; Z79.899 Other long term (current) drug therapy

== ENCOUNTER → 2020-09-07 | Outpatient (CLI) | payer BC, OTHER ==
[~2020-09-07] MED LIST changes: +ACCUNEB SO1.25 MG/1 NASAL; +ASA81BEC PO; +CITRACAL SOFT1 EACH PO; +CLARITIN10 MG PO; +COLLAGEN PLUS1 EACH PO; +COSOPT OCUMETER10 M1 OPHTHALMIC; +HYDROCODON-ACE1 EAC7 PO; +MULTI VITAMIN1 EACH PO; +VITAMIN B-COMP1 EAC3 PO; +VITAMIN D350 MCG PO
[2020-09-07 13:48] LABS: HEMATOCRIT 40.3 % (37.0-47.0); HEMOGLOBIN 13.5 gm/dL (12.0-15.0); MCH 31.1 pg (26.0-34.0); MCHC 33.6 g/dL (28.0-37.0); MCV 92.5 fL (80.0-100.0); RBC 4.36 mil/uL (4.20-5.00); RDW 12.6 % (10.5-14.5); WBC 6.9 thou/uL (4.0-11.0)
[2020-09-07 13:52] LABS: URINE BILIRUBIN NEGATIVE (Negative); URINE BLOOD NEGATIVE (Negative); URINE CLARITY CLEAR; URINE COLOR YELLOW; URINE GLUCOSE-RANDOM* NEGATIVE (Negative); URINE KETONES NEGATIVE (Negative); URINE NITRITE-REFLEX NEGATIVE (Negative); URINE PROTEIN (DIPSTICK) NEGATIVE (Negative); URINE SPECIFIC GRAVITY 1.025 (1.005-1.035); URINE UROBILINOGEN 0.2 E.U./dl (0.2-1.0)
[2020-09-07 13:53] LABS: URINE LEUKOCYTES-REFLEX 1+ (Negative)
[2020-09-07 14:01] LABS: ALBUMIN 3.7 g/dL (3.4-5.0); APTT 24.8 Seconds (24.5-32.8); CREATININE 1.1 mg/dL (0.6-1.0); INR 0.95; POTASSIUM 4.6 mmol/L (3.5-5.1); PROTIME 10.4 Seconds (9.3-11.4); TOTAL BILIRUBIN 0.3 mg/dL (0.2-1.0); TOTAL PROTEIN 7.7 g/dL (6.4-8.2)
[2020-09-07 14:13] LABS: SQUAMOUS 0-3 Few /LPF (0-3)
[2020-09-07 14:14] LABS: BACTERIA-REFLEX 1-9 Few /HPF (None Seen); CASTS None Seen /LPF (None Seen); CRYSTALS None Seen /LPF (None Seen); URINE RBC 0-2 Rare /HPF (0-2); URINE WBC-REFLEX 6-15 Few /HPF (0-5)
== END ==
LOC: LAB 08:32
PROVIDERS: Student in an Organized Health Care Education/Training Program; ATTEND Specialist
DX: Z01.812 Encounter for preprocedural laboratory examination (principal); Z20.822 Contact with and (suspected) exposure to COVID-19

== ENCOUNTER 2020-09-11 08:48 | Inpatient (IN) | payer BC, OTHER ==
[~2020-09-11] VITALS: Ht 172.7 cm; Wt 81.6 kg
[2020-09-11] VITALS (9 sets, daily range): BP systolic 96–115; BP diastolic 63–83
--- NOTE | 2020-09-11 14:51 | NUR ---
ASSUMED PT CARE AT 1320. PT IS ALERT & ORIENTED X4. PT HAS IV SITE ON R FA SALINE LOCKED. PT C/O OF PAIN AND GIVEN PAIN MEDICATION. INFORM DR ABOUT MEDICATION REC. PT AT THE BEDSIDE. PT ON THE BED, BED ON THE LOWEST POSITION, SIDE RAILS UP, CALL LIGHT WITHIN REACH. WILL CONTINUE TO MONITOR PT. FOLLOW POC.
--- NOTE | 2020-09-11 15:28 | NUR ---
ASSESSMENT: CM REVIEWED CHART. CM MET WITH PATIENT AND HER STANLEY AT THE BEDSIDE. PT IS S/P LUMBAR LAMINECTOMY. PT REPORTS SHE LIVES IN AN APT WITH AND HAS NO STEPS SHE HAS TO USE. PT REPORTS THAT SHE HAS A CANE AND WALKER FOR AMBULATION. PT REPORTS THAT SHE IS INDEPENDENT WITH ADLS. PT HAS BEEN TO [facility] IN THE PAST DUE TO COVID AND REPORTS SHE IS NOW FULLY VACCINATED LAST DOSE 08/21/20. PT REPORTS SHE ANTICIPATES BEING ABLE TO DISCHARGE HOME WITH HH. PT/OT EVALS ARE PENDING. 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 CM WILL CONTINUE TO FOLLOW TO ASSIST NEEDED.
[2020-09-12 03:58] VITALS: BP 103/67
--- NOTE | 2020-09-12 04:51 | NUR ---
RECEIVED CARE OF THIS PATIENT AT 1900. PATIENT ALERT AND ORIENTED X4. DRESSING ON BACK D/I. C/O PAIN, MED GIVEN. UP TO BEDSIDE WITH ASSIST. SLEPT OFF AND ON DURING NIGHT.
[2020-09-12 05:07] LABS: ABSOLUTE NEUTROPHILS 4.9 thou/uL (1.4-8.2); BASOPHILS 0.3 % (0.0-2.0); EOSINOPHILS 0.1 % (0.0-3.0); HEMATOCRIT 35.4 % (37.0-47.0); HEMOGLOBIN 11.9 gm/dL (12.0-15.0); LYMPHOCYTES 29.5 % (24.0-44.0); MCH 31.1 pg (26.0-34.0); MCHC 33.7 g/dL (28.0-37.0); MCV 92.3 fL (80.0-100.0); MONOCYTES 5.8 % (1.0-8.0); PLATELET COUNT 266 thou/uL (150-400); POLYS 64.3 % (36.0-66.0); RBC 3.83 mil/uL (4.20-5.00); RDW 12.6 % (10.5-14.5); WBC 7.7 thou/uL (4.0-11.0)
[2020-09-12 05:19] LABS: CALCIUM 8.5 mg/dL (8.5-10.1); MAGNESIUM 1.9 mg/dL (1.8-2.4); POTASSIUM 3.9 mmol/L (3.5-5.1)
[2020-09-12 07:15] VITALS: BP 109/77
--- NOTE | 2020-09-12 13:21 | NUR ---
on-going assessment: CM REVIEWED CHART AND SPOKE WITH PT AND HER . PT CONTINUES TO PROGRESS WITH PT/OT. PLANS FOR POSSIBLE DISCHARGE TOMORROW. PT REQUESTING HH AND SHE REPORTS SHE IS TRYING TO GET [facility] OF FAMILY TO SEE WHO THEY PREFER. CM WILL CONTINUE TO FOLLOW TO ASSIST NEEDED.
[2020-09-12 15:40] VITALS: BP 106/77
--- NOTE | 2020-09-12 18:18 | NUR ---
ASSUMED CARE OF PT AT 0700 THIS MORNING. PT WAS ADMITTED POST SURGERY OF SPINE. PT HAD A LUMBAR LAMINECTOMY OF THE SPINE. PT IS A/OX4, C/O PAIN 4 ON 1/10 SCALE. PT WAS GIVEN OXY/APAP 5/325MG PT'S SKIN IS W/D/P, INTACT WITH INCISION WOUND ON LOWER LUMBER AREA OF THE BACK. DRESSING ROLLED UP AND WAS CAUSING LEAKAGE, REPLACED DRESSING WITH CLEAN DRY BORDERED PADS. DISTAL PULSES PRESENT 2+ X4. PT HAS BEEN UP WITH PT AND OT TODAY AND IS MOVING VERY WELL. PT WAS IN CHAIR FOR ABOUT 2 HOURS. PT WENT BACK TO THE BED AND WAS HAVING INCREASE IN PAIN. PT WAS GIVEN 10/650MG OXY/APAP THIS AFTERNOON. ASSESSMENT WAS OTHERWISE UNREMARKABLE. CALL LIHT AND OTHER NEEDS WERE PLACED WITHIN REACH AT ALL TIMES.
[2020-09-12 20:55] VITALS: BP 102/76
--- NOTE | 2020-09-13 02:25 | NUR ---
ASSESSED AT START OF SHIFT PT RATES PAIN 8/10 AND C/O OF TENDERNESS AROUND INCISION SITE. PAIN MEDICATION PROVIDED. PT UP WITH SBA TO THE BATHROOM. GAUZE DRESSING ON LOWER BACK INTACT. DENIES N/V. SCD'S ON MARY LOWER EXT. FALL PREC IN PLACE AND CALL LIGHT AT REACH.
[2020-09-13 07:55] VITALS: BP 109/70
--- NOTE | 2020-09-13 10:34 | NUR ---
ASSUMED PT CARE THIS AM. PT IS ALERT & ORIENTED X4. PT HAS IV SITE ON R FA SALINE LOCKED. PT IS UP WITH ASSIST X1 AND USES WALKER TO TRANSFER FROM BED TO CHAIR. PT USES BSC AND HAS BATHROOM PRIVILEDGE. CHANGE DRESSING TODAY PER PT REQUEST. PT C/O OF PAIN AND GIVEN PAIN MEDICATION. PT NO C/O OF NAUSEA AND VOMITING. PT IS WORKING ON WITH PATIENT TODAY. WILL CONTINUE TO MONITOR PT. FOLLOW POC.
--- NOTE | 2020-09-13 11:29 | NUR ---
ON-GOING ASSESSMENT: CM REVIEWED CHART AND SPOKE WITH PATIENT. PT REPORTS BEING IN ALOT OF PAIN TODAY. PT IS SLOW TO PROGRESS WITH PT/OT. CM DISCUSSED POST ACURE CARE VS HH. PT STATING SHE WANTS TO GO HOME WITH HH IF ABLE. PT REQUESTED REFERRALS BE SENT TO [facility] OR [facility]. CM SPOKE WITH [facility] WHO REPORTS THEY DO NOT ACCEPT PATIENTS INSURANCE. REFERRAL WAS SENT TO [facility] AND AWAITING INPUT AT THIS TIME.
[2020-09-13 11:58] LABS: CALCIUM 8.4 mg/dL (8.5-10.1); POTASSIUM 4.1 mmol/L (3.5-5.1)
[2020-09-13 16:45] VITALS: BP 97/68
[2020-09-13 19:13] VITALS: BP 112/73
[2020-09-14 00:06] LABS: GLYCOHEMOGLOBIN (HGB A1C) 5.9 % (4.8-5.6)
[2020-09-14 04:05] VITALS: BP 98/71
--- NOTE | 2020-09-14 04:20 | NUR ---
RECEIVED CARE OF THIS PATIEMT AT 1900. PATIENT ALERT AND ORIENTED X4. UP TO BATHROOM WITH ASSIST AND WALKER. C/O PAIN, MED GIVEN. DRESSING ON BACK D/I. SLEPT OFF AND ON DURING NIGHT.
--- NOTE | 2020-09-14 12:11 | NUR ---
ASSUMED PT CARE THIS AM. PT IS ALERT & ORIENTED X4. PT HAS IV SITE ON RFA SALINE LOCKED. PT UP WITH ASSIST X1 AND USES WALKER. PT USES BEDSIDE COMMODE AND HAS BATHROOM PRIVILEDGE. PT C/O OF PAIN BUT WELL TOLERATED THAN YESTERDAY. GIVEN PAIN MEDICATION PT REQUEST. PT DID WELL WITH PT AND OT TODAY. PT ON THE BED, BED ON THE LOWEST POSITION, SIDE RAILS UP, CALL LIGHT WITHIN REACH. WILL CONTINUE TO MONITOR PT. FOLLOW POC.
[2020-09-14 14:00] VITALS: BP 98/71
[2020-09-14 15:36] VITALS: BP 125/60
--- NOTE | 2020-09-14 15:46 | NUR ---
ON-GOING ASSESSMENT: CHANCE REVIEWED CHART. PLANS ARE FOR PATIENT TO DISCHARGE LATER TODAY. CM NOTIFIED [facility] WHO REPORTS SHE WILL GATHER DISCHARE PAPERWORK. CHANCE SPOKE WITH PATIENT AND NOTIFIED HER [facility] WOULD BE CONTACT HER SOON AFTER DISCHARGE. PT REPORTS NO FURTHER NEEDS FROM CHANCE.
== END 2020-09-14 18:46 | disposition home health service (06) | DRG 520 ==
LOC: TBA 08:48 → OR 08:48 → TBA 08:49 → OR 09:52 → 4S 13:26
PROVIDERS: Hospitalist; Nurse Practitioner; ADMIT Specialist; ATTEND Specialist
PROC: 00NY0ZZ Release Lumbar Spinal Cord, Open Approach (ICD-10-PCS; principal; 2020-09-11)
DX: M48.061 Spinal stenosis, lumbar region without neurogenic claudication (principal); K21.9 Gastro-esophageal reflux disease without esophagitis; M51.36 Other intervertebral disc degeneration, lumbar region; K59.00 Constipation, unspecified; F32.9 Major depressive disorder, single episode, unspecified; G89.4 Chronic pain syndrome
CPT/HCPCS: 10102; 50010; 50101; 50402; 55340; 56525; 56528; 56532; 57103; 58457; 58567; 62110; 62900; 70005

== ENCOUNTER → 2020-12-28 | Outpatient (CLI) | payer BC, OTHER ==
[~2020-12-28] MED LIST changes: +ACCUNEB SO1.25 MG/1 INH; -ACCUNEB SO1.25 MG/1 NASAL; +FLEXERIL PO; +PROAIR HFA8.5 GM INH
[2020-12-28 11:55] LABS: HEMATOCRIT 37.2 % (37.0-47.0); HEMOGLOBIN 12.4 gm/dL (12.0-15.0); MCHC 33.4 g/dL (28.0-37.0); MCV 89.7 fL (80.0-100.0); RBC 4.15 mil/uL (4.20-5.00); RDW 13.2 % (10.5-14.5); WBC 4.7 thou/uL (4.0-11.0)
[2020-12-28 12:06] LABS: ALBUMIN 3.5 g/dL (3.4-5.0); APTT 26.4 Seconds (24.5-32.8); CALCIUM 8.6 mg/dL (8.5-10.1); INR 0.92; POTASSIUM 4.6 mmol/L (3.5-5.1); PROTIME 10.1 Seconds (10.5-12.1); TOTAL BILIRUBIN 0.3 mg/dL (0.2-1.0)
[2020-12-28 12:14] LABS: URINE BILIRUBIN NEGATIVE (Negative); URINE BLOOD TRACE (Negative); URINE CLARITY SL CLOUDY; URINE COLOR YELLOW; URINE GLUCOSE-RANDOM* NEGATIVE (Negative); URINE KETONES NEGATIVE (Negative); URINE NITRITE-REFLEX NEGATIVE (Negative); URINE PROTEIN (DIPSTICK) NEGATIVE (Negative); URINE SPECIFIC GRAVITY >= 1.030 (1.005-1.035); URINE UROBILINOGEN 0.2 E.U./dl (0.2-1.0)
[2020-12-28 12:15] LABS: URINE LEUKOCYTES-REFLEX 3+ (Negative)
[2020-12-28 12:16] LABS: BACTERIA-REFLEX 1-9 Few /HPF (None Seen); CASTS None Seen /LPF (None Seen); CRYSTALS None Seen /LPF (None Seen); SQUAMOUS 0-3 Few /LPF (0-3); URINE RBC None Seen /HPF (NONE SEEN); URINE WBC-REFLEX 6-15 Few /HPF (0-5)
--- NOTE | 2020-12-28 14:15 | EKG ---
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 12/28/20 1414 1131 30 Guzman Juarez MD, FACC /EPI
== END ==
LOC: PAC 10:49
PROVIDERS: ATTEND Specialist
DX: Z01.818 Encounter for other preprocedural examination (principal); M43.16 Spondylolisthesis, lumbar region; M47.816 Spondylosis without myelopathy or radiculopathy, lumbar region; E11.9 Type 2 diabetes mellitus without complications; I10 Essential (primary) hypertension; M48.061 Spinal stenosis, lumbar region without neurogenic claudication

== ENCOUNTER → 2021-01-01 | Outpatient (CLI) | payer BC, OTHER ==
[2021-01-01 14:12] LABS: URINE BILIRUBIN NEGATIVE (Negative); URINE BLOOD TRACE (Negative); URINE CLARITY SL HAZY; URINE COLOR YELLOW; URINE GLUCOSE-RANDOM* NEGATIVE (Negative); URINE KETONES NEGATIVE (Negative); URINE LEUKOCYTES-REFLEX 3+ (Negative); URINE NITRITE-REFLEX NEGATIVE (Negative); URINE PROTEIN (DIPSTICK) NEGATIVE (Negative); URINE UROBILINOGEN 0.2 E.U./dl (0.2-1.0)
[2021-01-01 14:19] LABS: SQUAMOUS 0-3 Few /LPF (0-3)
[2021-01-01 14:21] LABS: BACTERIA-REFLEX >30 Many /HPF (None Seen); CASTS None Seen /LPF (None Seen); CRYSTALS None Seen /LPF (None Seen); URINE RBC 1-2 Rare /HPF (NONE SEEN)
== END ==
LOC: LAB 13:57
PROVIDERS: ATTEND Specialist
DX: Z01.812 Encounter for preprocedural laboratory examination (principal); M43.16 Spondylolisthesis, lumbar region

== ENCOUNTER 2021-01-03 06:31 | Inpatient (IN) | payer BC, OTHER ==
[~2021-01-03] VITALS: Ht 172.7 cm; Wt 89.4 kg
[2021-01-03 07:55] VITALS: BP 102/67
[2021-01-03 14:55] VITALS: BP 107/72
[2021-01-03 19:24] VITALS: BP 110/77
--- NOTE | 2021-01-03 19:57 | NUR ---
ASSUMED PT CARE AT 1500 FROM PACU. PT HAD A LUMBAR LAMINECTOMY TODAY. PT HAS AUDIO VISUAL TECH PUMP WITH MORPHONE 1MG EVERY 6 MIN AND LOCKOUT 10 MG PER HOUR. CALLED RT REGARDING CONTINUOUS PULSE OX AND CAPNOGRAPHY. PT WAS AT THE BEDSIDE. EDUCATED TO USE THE AUDIO VISUAL TECH PUMP. PT HAS AQUACEL DRESSING, ICE PACK AND SCD. PT TOLERATED DIET WELL. FINISHED ADMISSION. PT HAS IV SITE ON R HAND RUNNING NS @ 126ML/HR. LAST BM WAS YESTERDAY. PT ON THE BED, BED ON THE LOWEST POSITION, SIDE RAILS UP, CALL LIGHT WITHIN REACH. WILL CONTINUE TO MONITOR PT. FOLLOW POC.
--- NOTE | 2021-01-04 01:26 | NUR ---
ASSESSED AT START OF SHIFT. PT RATES PAIN 7/10 WRAPPER CASHIER PUMP INTACT. ON 2L OF O2 AND [place] MONITOR IN PLACE. IV INTACT AND FLUIDS INFUSING. PT REPOSITIONED FOR COMFORT. ICE PACK IN PLACE. FOLLEY INTACT AND DRAINING. FALL PREC IN PLACE AND CALL LIGHT AT REACH WILL CONT WITH POC TILL EOS. DENIES NAUSEA AND VOMITTING. WILL CONT TO MONITOR.
[2021-01-04 05:02] VITALS: BP 103/60
[2021-01-04 05:17] LABS: ABSOLUTE NEUTROPHILS 5.3 thou/uL (1.4-8.2); BASOPHILS 0.1 % (0.0-2.0); EOSINOPHILS 0.2 % (0.0-3.0); HEMATOCRIT 30.3 % (37.0-47.0); HEMOGLOBIN 10.2 gm/dL (12.0-15.0); LYMPHOCYTES 24.9 % (24.0-44.0); MCH 30.4 pg (26.0-34.0); MCHC 33.5 g/dL (28.0-37.0); MCV 90.8 fL (80.0-100.0); MONOCYTES 8.8 % (1.0-8.0); PLATELET COUNT 229 thou/uL (150-400); RBC 3.34 mil/uL (4.20-5.00); RDW 13.3 % (10.5-14.5)
[2021-01-04 05:42] LABS: CALCIUM 7.7 mg/dL (8.5-10.1); MAGNESIUM 1.9 mg/dL (1.8-2.4)
--- NOTE | 2021-01-04 10:07 | NUR ---
ASSUMED PT CARE THIS AM. PT IS ALERT & ORIENTED X4. PT HAS IV SITE ON R HAND RUNNING NS @126ML/HR AND PLASTICS ENGINEERING TEACHER PUMP WITH MORPHINE AND CONTROL IS WITHIN REACH. PT HAS AQUACEL DRESSING. PT HAS CONTINUOUS PULSE OX AND CAPNOGRAPHY. PT IS ON 2L NC 02. PT WORKING WITH PHYSICAL AND OCCUPATIONAL THERAPY TODAY. WILL CONTINUE TO MONITOR PT. FOLLOW POC.
--- NOTE | 2021-01-04 13:14 | NUR ---
ASSESSMENT: CM REVIEWED CHART AND MET WITH PATIENT AT THE BEDSIDE. PT LIVES IN AN APT WITH HER . PT HAS NO STEPS TO ENTER OR ONCE INSIDE. PT REPORTS HAVING A WALKER FOR AMBULATION. PT REPORTS THAT SHE ALSO HAS A CANE BUT HAS BEEN USING A WALKER MORE LATERLY. PT STATES SHE HAS A GRAB BAR IN THE SHOWER. PT HAS HAD [facility] IN THE PAST AND REPORTS SHE WAS NOT HAPPY WITH THEM BUT HAS NO SPECIFIC COMPLAINT. PT REPORTS SHE ALSO HAD TO GO TO [facility] IN THE PAST WHEN SHE HAD COVID. CM DISCUSSED ROLE. PT STATES SHE FEELS SHE WOULD BENEFIT FROM HOME HEALTH AT DISCHARGE BUT WILL LIKELY WANT TO TRY A DIFFERENT HH BESIDES [facility] BUT HAS NO PREFERENCE. REFERRAL WAS SENT TO [facility]. PT REPORTS ALSO HAVING A HARD TIME CLEANING AROUND THE HOME RECENTLY. CM PROVIDED PATIENT WITH A SENIOR BLUE BOOK FOR OUTPATIENT RESOURCES [employer]LL [employer] IF NEEDED. CM WILL CONTINUE TO FOLLOW TO ASSIST NEEDED.
[2021-01-04 16:01] VITALS: BP 95/59
[2021-01-04 20:04] VITALS: BP 87/58
--- NOTE | 2021-01-05 02:22 | NUR ---
PT IS A/O X4 AND IS UP WITH ASSISTANCE TO THE BSC. PLEASANT AND COOPERATIVE. ROOM AIR. AFEBRILE. MEDICATIONS GIVEN PER MAR. C/O PAIN TO LOWER BACK. PRN PAIN MEDICATION GIVEN DIRECTED. VOIDS PER BSC. LARGE BM THIS SHIFT. FALL PRECAUTIONS IN PLACE, CALL LIGHT IS WITHIN REACH. WILL CONTINUE TO MONITOR.
[2021-01-05 04:31] VITALS: BP 100/64
[2021-01-05 13:51] VITALS: BP 100/64
--- NOTE | 2021-01-05 13:54 | NUR ---
ON-GOING ASSESSMENT: CM REVIEWED CHART AND SPOKE WITH PATIENT AT THE BEDSIDE. [facility] HAS ACCEPTED PATIENT FOR HOME HEALTH AT THE TIME OF DISCHARGE. ONCE PT IS STABLE TO DISCHARGE FAX DISCHARGE ORDERS/SUMMARY TO [facility] FAX:[phone] AND CONTACT THEM AT [phone]. PT HAS WALKER AND CAN AT HOME. CM NOTIFIED [facility] THAT PATIENT COULD POSSIBLY DISCHARGE HOME OVER THE WEEKEND.
--- NOTE | 2021-01-05 15:18 | NUR ---
PATIENT ALERT AND ORIENTED X3. UP TO BEDSIDE COMMODE WITH STANDBY ASSIST. PT WORKED WITH PATIENT. TOLERATED WELL. PATIENT SITTING UP IN CHAIR. BILATERAL LE EDEMA NOTED. NEW ORDERS GIVEN. PATIENT COMPLAINED OF PAIN SEVERAL TIMES. PRN MEDICATION GIVEN. WILL CONTINUE TO MONITOR.
[2021-01-05 17:00] VITALS: BP 104/66
[2021-01-05 20:00] VITALS: BP 101/65
[2021-01-06 03:05] VITALS: BP 115/81
--- NOTE | 2021-01-06 04:16 | NUR ---
PLEASANT. PT C/O DRSG KINK TO LUMBAR AREA-DRSG CHANGE PROVIDED. INCISION LOOKS GOOD, MERARY IN PLACE WITH SEROSANGUINOUS OUTPUT.PT ABLE TO GET UP TO THE BSC. VSS. BLE ELEVATED DUE TO EDEMA.CALLS WITH NEEDS.
[2021-01-06 07:17] VITALS: BP 124/79
--- NOTE | 2021-01-06 12:03 | NUR ---
ASSUMED PT CARE THIS AM. PT IS ALERT & ORIENTED X4. INFORMED DR THAT PT LEGS STILL SWOLLEN. ELEVATED AND DC FLUIDS PER DR ORDERED. PT IS ON ROOM AIR. PT IS UP WITH ASSIST X1 WITH WALKER AND GAITBELT. PT C/O OF PAIN AND GIVEN PAIN MEDICATION PER PT REQUEST. NO C/O OF NAUSEA AND VOMITING DURING THE SHIFT. PT HAS [employer] KNEE HIGH. NIGHT NURSE CHANGED AQUACEL DRESSING. WILL CONTINUE TO MONITOR PT. FOLLOW POC.
[2021-01-06 15:37] VITALS: BP 110/73
--- NOTE | 2021-01-07 04:00 | NUR ---
LOWER BACK DRSG WAS COMING LOOSE, REIFORCED WITH TEGADERM.SMALL SEROUS DRAINAGE NOTED. PT ABLE TO GET UP TO BSC WITH SBA, SHE DOES WELL, REQUIRES EXTRA TIME. AFEBRILE, ROOM AIR, REPORTS LEGAS AND HANDS FEEL LESS TIGHTER FROM SWELLING.
[2021-01-07 07:27] VITALS: BP 103/69
--- NOTE | 2021-01-07 09:58 | NUR ---
ASSUMED PT CARE THIS AM. PT IS ALERT & ORIENTED X4. PT HAS NO IV AND REFUSED TO HAVE AN IV. PT IS UP WITH ASSIST TO THE BATHROOM. ELEVATED LEGS DUE TO EDEMA NOTED. PT HAS BILATERAL [employer] KNEE HIGH. PT IS ON ROOM AIR. PT C/O OF PAIN AND GIVEN PAIN MEDICATION PER PT REQUEST. PT REFUSE MIRALAX THIS AM. PT TOLERATED MEDICATION AND DIET WELL. PT ON THE BED SLEEPING, BED ON THE LOWEST POSITION, SIDE RAIL UP, CALL LIGHT WITHIN REACH. WILL CONTINUE TO MONITOR PT. FOLLOW POC.
[2021-01-07 14:45] VITALS: BP 100/55
[2021-01-07 19:23] VITALS: BP 143/86
--- NOTE | 2021-01-08 01:28 | NUR ---
ASSESSED AT START OF SHIFT. PT A&OX4 MERARY DRAIN INTACT. EVENING MEDS GIVEN AND PT RADHA IT WELL. C/O LEFT LEG PAIN OXYCODONE PROVIDED. UP WITH SBA TO THE BSC. FALL PREC IN PLACE, CALL LIGHT AT REACH WILL CONT TO MONITOR.
[2021-01-08 08:00] VITALS: BP 100/66
--- NOTE | 2021-01-08 08:36 | NUR ---
A/O X 4. room air. One assist with transfer. Uses bedside commode. No IV access-refuses. Has bilateral knee and back pain. Left knee swollen. SCDs on.
--- NOTE | 2021-01-08 13:22 | NUR ---
on-going assessment: cm reviewed chart AND SPOKE WITH ATTENDING. PT HAS ORDERS TO DISCHARGE HOME TODAY WITH HOME HEALTH. CM SPOKE WITH [facility] WHO REPORTS THEY CAN ACCEPT PATIENT BUT MAY BE UP TO 72 HOURS BEFORE SHE CAN BE SEEN. PHYSICIAN IS OK WITH THIS PLAN WELL PATIENT. CM FAXED DISCHARGE PAPERWORK TO [facility] AND NOTIFIED CARMELO. PT REPORTS NO FURTHER NEEDS FROM CM. PTS IS AT HOME AND PT HAS EQUIPMENT AT HOME. CASE CLOSED.
== END 2021-01-08 14:00 | disposition home health service (06) | DRG 460 ==
LOC: PRE → 4S 06:31 → PRE 06:31 → 4S 06:31 → PRE 09:33 → TBA 13:51 → 4S 14:50
PROVIDERS: Nurse Practitioner; ADMIT Specialist; ATTEND Specialist
DX: M48.061 Spinal stenosis, lumbar region without neurogenic claudication (principal); N39.0 Urinary tract infection, site not specified; M43.16 Spondylolisthesis, lumbar region; K21.9 Gastro-esophageal reflux disease without esophagitis; F41.9 Anxiety disorder, unspecified; G43.909 Migraine, unspecified, not intractable, without status migrainosus; M19.90 Unspecified osteoarthritis, unspecified site; K59.00 Constipation, unspecified; G89.4 Chronic pain syndrome; G62.9 Polyneuropathy, unspecified; M53.2X6 Spinal instabilities, lumbar region; F32.9 Major depressive disorder, single episode, unspecified; Z20.822 Contact with and (suspected) exposure to COVID-19; Z90.710 Acquired absence of both cervix and uterus; Z86.16 Personal history of COVID-19; Z90.49 Acquired absence of other specified parts of digestive tract; Z87.891 Personal history of nicotine dependence; Z98.42 Cataract extraction status, left eye; Z98.41 Cataract extraction status, right eye
CPT/HCPCS: 10195; 50010; 50101; 50331; 50402; 50850; 51878; 52258; 55340; 56525; 56528; 56532; 57006; 57103; 58457; 58543; 58545; 58546; 58547; 58553; 58567; 58569; 58745; 58759; 58785; 58956; 62110; 62900; 70005

== ENCOUNTER 2021-04-07 13:24 | Emergency (ER) | payer BC, OTHER ==
[~2021-04-07] VITALS: Ht 172.7 cm; Wt 90.7 kg
[2021-04-07] MEDS ORDERED: NORCO5 PO (15:09)
[2021-04-07 15:24] VITALS: BP 126/86
== END 2021-04-07 15:38 | disposition home or self-care (01) ==
LOC: ER 13:24
DX: M25.462 Effusion, left knee (principal); M79.605 Pain in left leg; F41.9 Anxiety disorder, unspecified; G43.909 Migraine, unspecified, not intractable, without status migrainosus; K21.9 Gastro-esophageal reflux disease without esophagitis; M19.90 Unspecified osteoarthritis, unspecified site; Z90.710 Acquired absence of both cervix and uterus; Z86.16 Personal history of COVID-19; Z90.49 Acquired absence of other specified parts of digestive tract; Z98.890 Other specified postprocedural states; Z79.51 Long term (current) use of inhaled steroids; Z79.82 Long term (current) use of aspirin; Z79.1 Long term (current) use of non-steroidal anti-inflammatories (NSAID); Z79.891 Long term (current) use of opiate analgesic; Z79.899 Other long term (current) drug therapy

== ENCOUNTER 2021-05-17 14:33 | Emergency (ER) | payer BC, OTHER ==
[~2021-05-17 14:33] MED LIST changes: +NORCO5 PO
[2021-05-17 17:38] VITALS: BP 125/84
== END 2021-05-17 17:40 | disposition home or self-care (01) ==
LOC: ER 14:33
DX: T59.811A Toxic effect of smoke, accidental (unintentional), initial encounter (principal); T23.201A Burn of second degree of right hand, unspecified site, initial encounter; T31.0 Burns involving less than 10% of body surface; F41.9 Anxiety disorder, unspecified; G43.909 Migraine, unspecified, not intractable, without status migrainosus; K21.9 Gastro-esophageal reflux disease without esophagitis; M19.90 Unspecified osteoarthritis, unspecified site; Z90.710 Acquired absence of both cervix and uterus; Z86.16 Personal history of COVID-19; Z90.49 Acquired absence of other specified parts of digestive tract; Z98.890 Other specified postprocedural states; Z79.51 Long term (current) use of inhaled steroids; Z79.82 Long term (current) use of aspirin; Z79.891 Long term (current) use of opiate analgesic; Z79.899 Other long term (current) drug therapy; Z79.1 Long term (current) use of non-steroidal anti-inflammatories (NSAID); Y92.89 Other specified places as the place of occurrence of the external cause